=== PATIENT | female | born 1960 | race Caucasian/White ===

== ENCOUNTER 2017-08-23 04:05 | Inpatient (IN) | payer MEDICARE, MEDICAID ==
[~2017-08-23] VITALS: Ht 157.5 cm; Wt 69.4 kg
--- NOTE | 2017-08-23 09:00 | NUR ---
GPS/RN-NOTES ADMITTED 57 YEARS OLD FEMALE PATIENT. PATIENT ON 5150 HOLD FOR GRAVELY DISABLE ADULT. PER HOLD PATIENT HAS BEEN INCREASINGLY CONFUSED AND NOT SLEEPING FOR 5DAYS. UPON FACE TO FACE ASSESSMENT PATIENT IS ALERT ORIENTED X3, AMBULATORY,PASSIVE WITH EASILY ANGRY BEHAVIOR. PATIENT'S RIGHT WAS DISCUSSED WITH THE PATIENT AND PATIENT'S RIGHT BOOKLET WAS GIVEN TO THE PATIENT. PATIENT DID NOT VERBALIZE SI/HI,DENIES VISUAL/AUDITORY HALLUCINATIONS AT THIS TIME.DR. SUAREZ MADE AWARE OF PATIENT ADMISSION WITH ORDERS.PATIENT'S AWNING HANGER HELPER CYNTHIA LOMBARDO ([phone] ) ALSO MADE AWARE OF PATIENT ADMISSION IN THE UNIT. PATIENT WAS ORIENTED IN THE UNIT AND UNIT POLICIES.
[2017-08-23] MEDS ORDERED: ARIP30TA3 PO (10:24)
[2017-08-23] MEDS ORDERED: MIRT15TA PO (10:24)
[2017-08-23] MEDS ORDERED: TRIH2TAB4 PO (10:24)
[2017-08-23] MEDS ORDERED: AMLO10TA4 PO (10:24)
[2017-08-23] MEDS ORDERED: FLUP5TAB PO (10:24)
[2017-08-23] MEDS ORDERED: LISI-603 PO (10:24)
[2017-08-23] MEDS ORDERED: DIPH50CA37 PO (10:24)
[2017-08-23] MEDS ORDERED: LAMO25TA5 PO (10:24)
[2017-08-23] MEDS ORDERED: LORA-259 PO (10:24)
[2017-08-23] MEDS ORDERED: OMEG1CAP55 PO (10:24)
[2017-08-23] MEDS ORDERED: ATOR10TA PO (10:24)
[2017-08-23] MEDS ORDERED: BENZ1TAB7 PO (10:24)
[2017-08-23] MEDS ORDERED: ACETAMINOPHEN 325 MG TABLET PO PRN (11:00)
[2017-08-23] MEDS ORDERED: MAG HYDROX/AL HYDROX/SIMETH 30 ML UDC PO PRN (11:00)
[2017-08-23] MEDS ORDERED: clonazePAM 0.5 MG TABLET PO PRN (11:00)
[2017-08-23] MEDS ORDERED: MAGNESIUM HYDROXIDE 30 ML UDC PO PRN (11:00)
--- NOTE | 2017-08-23 11:10 | NUR ---
GPS/RN-NOTES NOTED PATIENT PACING IN THE HALLWAY AND STATED SHE WANTS TO GO HOME. REDIRECTED AND REASSURED PATIENT. OFFERED KLONOPIN AND AGREES. KLONOPIN 0.5MG P.O GIVEN PRN ORDER. WILL CONT. MONITORING FOR SAFETY AND BEHAVIOR.
--- NOTE | 2017-08-23 12:00 | NUR ---
GPS/RN-NOTES DR. PALACIOS ( MARKETING PRODUCER) MADE AWARE OF PATIENT ADMISSION IN THE UNIT AND WILL RECONCILE PATIENT MEDICATIONS.
[2017-08-23] MEDS ORDERED: diphenhydrAMINE HCL 50 MG CAPSULE PO PRN (15:00)
[2017-08-23 16:00] VITALS: BP 148/88
[2017-08-23 20:00] VITALS: BP 124/74
[2017-08-23 20:12] VITALS: BP 124/74
[2017-08-23] MEDS: ARIPIPRAZOLE 5 MG TABLET PO SCH (21:13)
[2017-08-23] MEDS: BENZTROPINE MESYLATE (1 MG) 1 MG TABLET PO SCH (21:14)
[2017-08-23] MEDS: LamoTRIgine 25 MG TABLET PO SCH (21:14)
[2017-08-23] MEDS: TEMAZEPAM 7.5 MG CAPSULE PO PRN (21:15)
[2017-08-24 07:41] LABS: CHOLESTEROL 178 mg/dL (<200); HDL CHOLESTEROL 66 mg/dL (40-60); LDL 92 mg/dL (0-99); TRIGLYCERIDES 130 mg/dL (30-150)
[2017-08-24 07:45] LABS: ALBUMIN 3.8 g/dL (3.4-5.0); BILIRUBIN,TOTAL 0.4 mg/dL (0.2-1.0); CALCIUM, SERUM 8.6 mg/dL (8.5-10.1); CREATININE 1.3 mg/dL (0.6-1.3); POTASSIUM 4.1 mmol/L (3.5-5.1); TOTAL PROTEIN, SERUM 7.5 g/dL (6.4-8.2)
[2017-08-24 08:00] VITALS: BP 153/78
--- NOTE | 2017-08-24 08:49 | NUR ---
Initial Discharge Note: Patient states that the address, which is listed on on the facesheet is inaccurate. The address on file is: [address] [place] [address]. Patient states that she recently moved to the [facility], but is unable to provide exact address. SW to contact patient's caregiver, Riya Tan [phone] to discuss discharge plan. SW to follow up with MD and facilitate safe and proper discharge.
[2017-08-24] MEDS: LamoTRIgine 25 MG TABLET PO SCH ×2 (09:12→21:39)
[2017-08-24] MEDS: TRIHEXYPHENIDYL HCL 2 MG TABLET PO SCH (09:12)
[2017-08-24] MEDS: LISINOPRIL (20MG) 20 MG TABLET PO SCH (09:13)
[2017-08-24] MEDS: ATORVASTATIN 10 MG TABLET PO SCH (09:13)
[2017-08-24] MEDS: AMLODIPINE BESYLATE 10 MG TABLET PO SCH (09:13)
[2017-08-24] MEDS: NICOTINE PATCH (14MG) 14 MG PATCH.TD24 TD SCH (09:15)
[2017-08-24] MEDS: LORAZEPAM 1 MG TABLET PO PRN (14:31)
--- NOTE | 2017-08-24 14:33 | NUR ---
GPS/RN-NOTES NOTED PATIENT PACING IN THE HALLWAY HYPERVERBAL REQUESTING FOR ATIVAN.REDIRECTED AND REASSURED PATIENT. ATIVAN 1MG P.O GIVEN PRN ORDER. WILL CONT. MONITORING FOR SAFETY AND BEHAVIOR.
--- NOTE | 2017-08-24 15:30 | NUR ---
GPS/RN-NOTES PATIENT LAYING IN HER BED CALM AND COOPERATIVE ,NO ACUTE DISTRESS NOTED.
[2017-08-24 15:44] VITALS: BP 138/72
[2017-08-24 20:00] VITALS: BP 137/92
[2017-08-24] MEDS ORDERED: ARIPIPRAZOLE 5 MG TABLET ONE (21:30)
--- NOTE | 2017-08-24 21:30 | NUR ---
GPS RN NOTES: NOTIFIED NURSING SENIOR TALENT ACQUISITION SPECIALIST CODIE TO OVERRIDE ABILIFY 30MG HE SAID, NOT AVAILABLE IN THE NIGHT LOCKER AND THAT HE INSTRUCTED TO GO TO THE NEAREST UNIT. CHARGE NURSE FROM [facility] PULLED OUT FROM OMNICELL ABILIFY 30MG PO ORDERED. AUDIO VISUAL SECRETARY AND CN MADE AWARE.
[2017-08-24] MEDS: ARIPIPRAZOLE 5 MG TABLET PO SCH (21:38)
[2017-08-24] MEDS: BENZTROPINE MESYLATE (1 MG) 1 MG TABLET PO SCH (21:39)
[2017-08-25] MEDS ORDERED: CALCIUM CARBONATE 500 MG TAB.CHEW ONE (00:48)
[2017-08-25] MEDS: CALCIUM CARBONATE 500 MG TAB.CHEW PO PRN (00:56)
--- NOTE | 2017-08-25 00:56 | NUR ---
GPS RN NOTES: PATIENT C/O OF THREW UP WITH FOOD CONTENT SMALL TO MODERATE AMOUNT, HOB ELEVATED FOR ASPIRATION PRECAUTION, ENCOURAGED FLUIDS TOLERATED, CRACKERS OFFERED, TOLERATED WELL. PATIENT SAID, SHE WAS TAKING TUMS AND NEXIUM. NOTIFIED DR. LEVINE. ORDERED TUMS 500 MG TID PRN NOTED AND CARRIED OUT. NEXIUM 20MG PO AC MEALS BID IS NON-FORMULARY MEDICATION, WILL ENDORSE TO FOLLOW UP, NOTIFY PHARMACIST ABOUT SUBSTITUTION.
[2017-08-25] MEDS: TEMAZEPAM 7.5 MG CAPSULE PO PRN (01:00)
[2017-08-25] MEDS: LORAZEPAM 1 MG TABLET PO PRN (01:30)
--- NOTE | 2017-08-25 06:34 | NUR ---
GPS RN NOTES: FOLLOWED UP CALL MADE TO DR. LEVINE. AWAITING CALL BACK.
[2017-08-25 08:00] VITALS: BP 134/70
[2017-08-25] MEDS: ATORVASTATIN 10 MG TABLET PO SCH (08:08)
[2017-08-25] MEDS: AMLODIPINE BESYLATE 10 MG TABLET PO SCH (08:09)
[2017-08-25] MEDS: LamoTRIgine 25 MG TABLET PO SCH ×2 (08:09→21:37)
[2017-08-25] MEDS: LISINOPRIL (20MG) 20 MG TABLET PO SCH (08:09)
[2017-08-25] MEDS: TRIHEXYPHENIDYL HCL 2 MG TABLET PO SCH (08:09)
--- NOTE | 2017-08-25 09:54 | NUR ---
DR. PALACIOS IN THE UNIT AND EXAMINED THE PT. ADVANCE DIRECTIVES SHOWED TO MD AND SAID HE WILL PUT THE ORDER. MD. ORDER ORDERED PROTONIX 40 MG PO ACB.
[2017-08-25] MEDS: NICOTINE PATCH (14MG) 14 MG PATCH.TD24 TD SCH (10:33)
[2017-08-25] MEDS: PANTOPRAZOLE 40 MG TABLET.DR PO SCH (10:52)
--- NOTE | 2017-08-25 13:15 | NUR ---
Discharge Planning: SW called and left a voicemail for patient's caregiver Riya Tan [phone]. SW provided her direct contact information in the voicemail.
--- NOTE | 2017-08-25 13:27 | NUR ---
Discharge Planning: SW spoke with Xenia Mensah, . Xenia is patient's trustee and manages a special needs trust. Xenia stated that patient's caregivers and her have been attempting to convince patient to go to a SNF after the hospital before returning back home. In previous conversations with SW, patient had been refusing any placement. SW to speak with patient and continue conversations with caregivers/trustee.
[2017-08-25 16:00] VITALS: BP 130/80
[2017-08-25 20:00] VITALS: BP 130/78
[2017-08-25] MEDS: BENZTROPINE MESYLATE (1 MG) 1 MG TABLET PO SCH (21:37)
[2017-08-25] MEDS: ARIPIPRAZOLE 5 MG TABLET PO SCH (21:37)
[2017-08-26] MEDS: PANTOPRAZOLE 40 MG TABLET.DR PO SCH ×2 (07:30→07:33)
[2017-08-26 08:00] VITALS: BP 136/47
[2017-08-26] MEDS: LISINOPRIL (20MG) 20 MG TABLET PO SCH ×2 (09:00→09:04)
[2017-08-26] MEDS: NICOTINE PATCH (14MG) 14 MG PATCH.TD24 TD SCH ×2 (09:00→09:04)
[2017-08-26] MEDS: TRIHEXYPHENIDYL HCL 2 MG TABLET PO SCH (09:04)
[2017-08-26] MEDS: ATORVASTATIN 10 MG TABLET PO SCH (09:04)
[2017-08-26] MEDS: AMLODIPINE BESYLATE 10 MG TABLET PO SCH (09:04)
[2017-08-26] MEDS: LamoTRIgine 25 MG TABLET PO SCH ×2 (09:04→21:02)
[2017-08-26 16:00] VITALS: BP 139/84
[2017-08-26 20:00] VITALS: BP 148/88
[2017-08-26] MEDS: ARIPIPRAZOLE 5 MG TABLET PO SCH (21:01)
[2017-08-26] MEDS: BENZTROPINE MESYLATE (1 MG) 1 MG TABLET PO SCH (21:01)
[2017-08-27] MEDS: CALCIUM CARBONATE 500 MG TAB.CHEW PO PRN ×2 (01:08→09:44)
[2017-08-27] MEDS: LORAZEPAM 1 MG TABLET PO PRN (02:20)
[2017-08-27] MEDS: PANTOPRAZOLE 40 MG TABLET.DR PO SCH (07:30)
[2017-08-27 08:00] VITALS: BP 130/72
[2017-08-27] MEDS: NICOTINE PATCH (14MG) 14 MG PATCH.TD24 TD SCH (09:00)
[2017-08-27] MEDS: LISINOPRIL (20MG) 20 MG TABLET PO SCH (09:00)
[2017-08-27] MEDS: TRIHEXYPHENIDYL HCL 2 MG TABLET PO SCH (09:00)
[2017-08-27] MEDS: LamoTRIgine 25 MG TABLET PO SCH ×2 (09:05→20:57)
[2017-08-27] MEDS: ATORVASTATIN 10 MG TABLET PO SCH (09:06)
[2017-08-27] MEDS: AMLODIPINE BESYLATE 10 MG TABLET PO SCH (09:06)
--- NOTE | 2017-08-27 09:44 | NUR ---
rn notes administered Benadryl for itching, and Tums for stomachache, per patient request, patient selective with scheduled medication., continued monitoring.
[2017-08-27 16:05] VITALS: BP 127/89
[2017-08-27 19:51] VITALS: BP 143/77
[2017-08-27] MEDS: BENZTROPINE MESYLATE (1 MG) 1 MG TABLET PO SCH (20:56)
[2017-08-27] MEDS: ARIPIPRAZOLE 5 MG TABLET PO SCH (22:00)
--- NOTE | 2017-08-27 22:00 | NUR ---
GPS RN NOTES: PATIENT REQUESTED THE COURT ATTENDANT FOR THE FOLLOWING TO BE TAKEN CARED OF: - PASTEURIZING SUPERVISOR CONSULT- UNABLE TO STATE THE REASON WHY SHE NEEDS ONE - FOR HER TO BE DISCHARGED TODAY BECAUSE HER SERVICE DOG IS ALONE AT HOME. - LIPITOR MEDICATION TO BE GIVEN AT NIGHT TIME ONLY - COLACE MEDICATION AT NIGHT - REMERON 7.5 MG FOR SLEEP - XANAX MEDICATION INSTEAD OF ATIVAN. DISCUSSED EVERYTHING WITH THE DAY SHIFT NURSE. ATTENDED TO THE PATIENT'S NEEDS NEEDED.
[2017-08-28] MEDS: IBUPROFEN 400 MG TABLET PO PRN ×2 (06:20→21:36)
[2017-08-28] MEDS: PANTOPRAZOLE 40 MG TABLET.DR PO SCH (07:30)
[2017-08-28] MEDS: CALCIUM CARBONATE 500 MG TAB.CHEW PO PRN (07:35)
[2017-08-28 08:00] VITALS: BP 144/85
[2017-08-28] MEDS: NICOTINE PATCH (14MG) 14 MG PATCH.TD24 TD SCH (08:29)
[2017-08-28] MEDS: LamoTRIgine 25 MG TABLET PO SCH ×2 (08:30→21:40)
[2017-08-28] MEDS: AMLODIPINE BESYLATE 10 MG TABLET PO SCH (08:31)
[2017-08-28] MEDS: TRIHEXYPHENIDYL HCL 2 MG TABLET PO SCH (08:33)
[2017-08-28] MEDS: LISINOPRIL (20MG) 20 MG TABLET PO SCH (08:33)
[2017-08-28] MEDS: ATORVASTATIN 10 MG TABLET PO SCH (09:26)
--- NOTE | 2017-08-28 14:35 | NUR ---
Discharge Planning: NEETU spoke to patient's trustee, Xneia Mensah, . Xenia requested to meet tomorrow afternoon. NEETU stated that 11am is a good time. NEETU and Xenia will discuss patient's discharge plans.
--- NOTE | 2017-08-28 14:35 | NUR ---
Discharge Planning: NEETU faxed inquiry to [facility], [address] [address]; / fax# . SW to follow up on status.
[2017-08-28 16:00] VITALS: BP 140/86
[2017-08-28 20:11] VITALS: BP 119/77
[2017-08-28] MEDS: BENZTROPINE MESYLATE (1 MG) 1 MG TABLET PO SCH (21:37)
[2017-08-28] MEDS: ARIPIPRAZOLE 5 MG TABLET PO SCH (21:39)
--- NOTE | 2017-08-29 05:39 | NUR ---
GPS RN NOTES: PATIENT CAME TO THE STATION AND ASKED FOR IBUPROFEN SHE IS HAVING SOME PAIN ON HER RIGHT LEG. NURSE WENT TO THE MED ROOM TO PULL OUT MEDICATION, PATIENT THEN SAID SHE WILL BE BACK. WHEN SHE CAME BACK TO THE STATION, SHE TOLD THE NURSE SHE WANTED HER BENADRYL BECAUSE SHE IS ITCHING. SO THE NURSE TOLD HER TO WAIT IN THE STATION SHE WILL PULL OUT HER MEDICATION. WHEN THE NURSE CAME BACK, THE PATIENT LEFT THE STATION. SO THE NURSE FOLLOWED HER IN THE HALLWAY, WHEN THE NURSE APPROACHED,SHE SAID, "I ACTUALLY HAVE INFECTION, THIS LONG". SHE WAS TRYING TO ILLUSTRATE THE LENGTH TO THE NURSE. WHEN ASKED IF SHE WANTS HER MEDICATION THAT SHE ASKED EARLIER, SHE THEN ANSWERED, "I NEED MY BLOOD PRESSURE MEDICATION NOW" THE NURSE THEN TOLD HER, THE MEDICATIONS FOR BLOOD PRESSURE WILL BE CHECKED AND SHE WILL GET HER MEDS AT 0900. WILL ENDORSE PATIENT TO THE DAY SHIFT NURSE.
[2017-08-29 08:00] VITALS: BP 111/58
[2017-08-29] MEDS: NICOTINE PATCH (14MG) 14 MG PATCH.TD24 TD SCH (08:14)
[2017-08-29] MEDS: ATORVASTATIN 10 MG TABLET PO SCH (08:14)
[2017-08-29] MEDS: PANTOPRAZOLE 40 MG TABLET.DR PO SCH (08:14)
[2017-08-29] MEDS: TRIHEXYPHENIDYL HCL 2 MG TABLET PO SCH (08:14)
[2017-08-29] MEDS: LamoTRIgine 25 MG TABLET PO SCH ×2 (08:14→20:56)
[2017-08-29] MEDS: AMLODIPINE BESYLATE 10 MG TABLET PO SCH (08:15)
[2017-08-29] MEDS: LISINOPRIL (20MG) 20 MG TABLET PO SCH (08:15)
--- NOTE | 2017-08-29 11:14 | NUR ---
Discharge Planning: NEETU faxed an inquiry to [facility], [address] [place] [address] / fax number [phone]
--- NOTE | 2017-08-29 11:15 | NUR ---
NEETU received a voicemail from patient's trustee, Xenia Mensah, that she was unable to meet with SW today at 11am.
--- NOTE | 2017-08-29 11:15 | NUR ---
Discharge Planning: SW was informed by Rupert from [facility], [address] [address] [facility] [place] [address]; / fax# that patient was too young for their facility.
[2017-08-29 16:00] VITALS: BP 110/59
[2017-08-29] MEDS: IBUPROFEN 400 MG TABLET PO PRN (18:01)
--- NOTE | 2017-08-29 18:04 | NUR ---
GPS/RN-NOTES PATIENT C/O 3/10 LOWER BACK PAIN AND REQUESTING MOTRIN. MOTRIN 400MG P.O GIVEN PRN ORDER. WILL CONT. MONITORING FOR SAFETY AND BEHAVIOR.
[2017-08-29 20:04] VITALS: BP 144/87
[2017-08-29] MEDS: BENZTROPINE MESYLATE (1 MG) 1 MG TABLET PO SCH (21:17)
[2017-08-29] MEDS: ARIPIPRAZOLE 5 MG TABLET PO SCH (21:17)
[2017-08-29] MEDS: TEMAZEPAM 7.5 MG CAPSULE PO PRN (23:16)
[2017-08-30] MEDS: PANTOPRAZOLE 40 MG TABLET.DR PO SCH (07:30)
[2017-08-30] MEDS: LISINOPRIL (20MG) 20 MG TABLET PO SCH (09:09)
[2017-08-30] MEDS: AMLODIPINE BESYLATE 10 MG TABLET PO SCH (09:09)
[2017-08-30] MEDS: TRIHEXYPHENIDYL HCL 2 MG TABLET PO SCH (09:09)
[2017-08-30] MEDS: LamoTRIgine 25 MG TABLET PO SCH ×2 (09:10→21:20)
[2017-08-30] MEDS: ATORVASTATIN 10 MG TABLET PO SCH (09:10)
[2017-08-30] MEDS: NICOTINE PATCH (14MG) 14 MG PATCH.TD24 TD SCH (09:10)
--- NOTE | 2017-08-30 10:37 | NUR ---
Discharge Planning: SW was informed by CJ from [facility], [address] [place] [address] / fax number [phone] that patient was accepted into their facility. SW spoke with patient regarding the SNF and patient agreed to go, stating that it is a part of her three-part plan: first part is the hospital, second part is the SNF and the third part is to get well enough to return home with caregiver.
--- NOTE | 2017-08-30 10:40 | NUR ---
Discharge Planning: SW spoke with patient's trustee, Xenia Mensah, and informed her that patient was accepted into [facility] and that patient is agreeing to go. Xenia stated that she was pleased with the news and asked SW to update her on a discharge date. SW stated that she will do so.
[2017-08-30 11:30] VITALS: BP 127/66
[2017-08-30 16:00] VITALS: BP 105/65
[2017-08-30] MEDS: IBUPROFEN 400 MG TABLET PO PRN (20:31)
[2017-08-30 20:59] VITALS: BP 134/98
[2017-08-30] MEDS: ARIPIPRAZOLE 5 MG TABLET PO SCH (21:21)
[2017-08-30] MEDS: BENZTROPINE MESYLATE (1 MG) 1 MG TABLET PO SCH (21:21)
[2017-08-30] MEDS: TEMAZEPAM 7.5 MG CAPSULE PO PRN (21:22)
[2017-08-31] MEDS: IBUPROFEN 400 MG TABLET PO PRN ×2 (07:01→18:20)
[2017-08-31] MEDS: LamoTRIgine 25 MG TABLET PO SCH ×2 (08:17→21:28)
[2017-08-31] MEDS: PANTOPRAZOLE 40 MG TABLET.DR PO SCH (08:17)
[2017-08-31] MEDS: ATORVASTATIN 10 MG TABLET PO SCH (08:17)
[2017-08-31] MEDS: AMLODIPINE BESYLATE 10 MG TABLET PO SCH (08:17)
[2017-08-31] MEDS: TRIHEXYPHENIDYL HCL 2 MG TABLET PO SCH (08:17)
[2017-08-31] MEDS: NICOTINE PATCH (14MG) 14 MG PATCH.TD24 TD SCH (08:18)
[2017-08-31] MEDS: LISINOPRIL (20MG) 20 MG TABLET PO SCH (08:18)
[2017-08-31 08:27] VITALS: BP 118/78
--- NOTE | 2017-08-31 12:30 | NUR ---
Discharge Planning: NEETU faxed progress notes to [facility], [address] [place] [address] / fax number [phone]
[2017-08-31 16:46] VITALS: BP 138/77
[2017-08-31 20:00] VITALS: BP 146/76
[2017-08-31] MEDS: BENZTROPINE MESYLATE (1 MG) 1 MG TABLET PO SCH (21:28)
[2017-08-31] MEDS: ARIPIPRAZOLE 5 MG TABLET PO SCH (21:28)
[2017-08-31] MEDS: TEMAZEPAM 7.5 MG CAPSULE PO PRN (21:29)
[2017-09-01] MEDS: IBUPROFEN 400 MG TABLET PO PRN (02:31)
[2017-09-01 08:00] VITALS: BP 133/73
[2017-09-01] MEDS: TRIHEXYPHENIDYL HCL 2 MG TABLET PO SCH (08:29)
[2017-09-01] MEDS: LamoTRIgine 25 MG TABLET PO SCH (08:29)
[2017-09-01] MEDS: NICOTINE PATCH (14MG) 14 MG PATCH.TD24 TD SCH (08:29)
[2017-09-01] MEDS: PANTOPRAZOLE 40 MG TABLET.DR PO SCH (08:29)
[2017-09-01 08:30] VITALS: BP 133/73
[2017-09-01] MEDS: AMLODIPINE BESYLATE 10 MG TABLET PO SCH (08:30)
[2017-09-01] MEDS: ATORVASTATIN 10 MG TABLET PO SCH (08:30)
[2017-09-01] MEDS: LISINOPRIL (20MG) 20 MG TABLET PO SCH (08:30)
--- NOTE | 2017-09-01 09:31 | NUR ---
Discharge Note: Patient will be discharged to [facility], [address] [facility] [place] [address] / fax number [phone] via ambulance transportation set up by social media intern via [employer] [phone], trip #[id number]. Patients trustee, Xenia Mensah [phone], is aware and in agreement with discharge plan. Upon discharge, patient denies suicidal and homicidal ideation. Patient denies visual and auditory hallucinations. At the facility, patient will be seen by psychiatrist Dr. Sadler [address], [place] [address] [phone]. Patients occupational therapy technician will be Dr. White [address] [address] [phone].
--- NOTE | 2017-09-01 14:36 | NUR ---
GPS/RN-NOTES PATIENT DISCHARGE TO [facility] TODAY . DR. SUAREZ AND SKINNY DAVIDSON AWARE AND AGREES OF PATIENT DISCHARGE WITH ORDERS. REPORT WAS GIVEN TO NIRANJAN ( FACILITY STAFF/DEVELOPMENT EXPERT ). PATIENT DID NOT VERBALIZE SI/HI,DENIES VISUAL AUDITORY HALLUCINATIONS AT THE TIME OF DISCHARGE. PATIENT LEFT THE UNIT AMBULATORY, IN STABLE CONDITION WITH ALL HER BELONGINGS. PER SW WORKER NOTES PATIENT TRUSTEE ( Xenia Rodrick [phone]) AWARE OF PATIENT DISCHARGE. PICK BY AMBULANCE VIA [facility] WITH TWO STAFF ASSIST. PATIENT REFUSED FULL BODY ASSESSMENT PRIOR TO DISCHARGE. STATED" MY SKIN ARE FINE". EXPLAINED UNIT POLICIES BUT STILL REFUSED.
== END 2017-09-01 14:30 | DRG 885 ==
LOC: TRANSITION 08:19 → GPS 08:32
PROVIDERS: ADMIT Psychiatry & Neurology Psychiatry; ATTEND Internal Medicine
DX: F31.2 Bipolar disorder, current episode manic severe with psychotic features (principal); G20 Parkinson's disease; F03.90 Unspecified dementia, unspecified severity, without behavioral disturbance, psychotic disturbance, mood disturbance, and anxiety; E78.5 Hyperlipidemia, unspecified; F29 Unspecified psychosis not due to a substance or known physiological condition; I10 Essential (primary) hypertension; F41.9 Anxiety disorder, unspecified; Z73.6 Limitation of activities due to disability
CPT/HCPCS: 36415; 80053-TC; 80061-TC; 87081-TC; Q0163

== ENCOUNTER 2017-11-06 11:28 | Inpatient (IN) | payer MEDICARE, MEDICAID ==
[~2017-11-06] VITALS: Ht 157.5 cm; Wt 68.9 kg
[~2017-11-06 11:28] MED LIST: AMLO10TA4 PO; ATOR10TA PO; DIPH50CA37 PO; LISI-603 PO; OMEG1CAP55 PO; TRIH2TAB4 PO
--- NOTE | 2017-11-06 11:45 | NUR ---
Recieved patient at this time. Pt was private ems from SNF for more altered than usual x 1 day. Pt appars confused. A/ox1. NAD, vss rr even and unlabored. skin is warm and non diaphoretic. All needs are attended, will cont to monitor.
--- NOTE | 2017-11-06 11:54 | NUR ---
Pt to CT scan.
[2017-11-06] MEDS ORDERED: OLANZAPINE 10 MG VIAL IM ONE ×2 (12:00→12:47)
--- NOTE | 2017-11-06 12:04 | NUR ---
Pt back from CT scan.
[2017-11-06 12:18] LABS: BASOPHILS # (AUTO) 0.1 /CMM (0.0-0.2); BASOPHILS % (AUTO) 1.1 % (0.0-2.0); EOSINOPHILS % (AUTO) 0.2 % (0.0-6.0); HEMATOCRIT 39 % (33-45); HEMOGLOBIN 13.6 g/dL (11.5-14.8); LYMPHOCYTES # (AUTO) 1.6 /CMM (0.8-4.8); LYMPHOCYTES % (AUTO) 17.9 % (20.0-44.0); MEAN CORPUSCULAR HGB CONC 35 g/dl (31.0-36.0); MEAN CORPUSCULAR VOLUME 86 fL (82-100); MONOCYTES # (AUTO) 0.6 /CMM (0.1-1.30); MONOCYTES % (AUTO) 6.2 % (2.0-12.0); NEUTROPHILS # (AUTO) 6.8 /CMM (1.8-8.9); NEUTROPHILS % (AUTO) 74.6 % (43.0-81.0); PLATELET COUNT (AUTO) 156 /CMM (150-450); RDW COEFFICIENT OF VARIATION 13.4 (11.5-15.0); RED BLOOD CELL COUNT(AUTO) 4.55 MIL/uL (4.0-5.2); WHITE BLOOD COUNT (AUTO) 9.1 K/uL (4.3-11.0)
[2017-11-06 12:21] LABS: CALCIUM, SERUM 9.5 mg/dL (8.5-10.1); CARBON DIOXIDE 23 mmol/L (21-32); CHLORIDE 105 mmol/L (98-107); CREATININE 1.3 mg/dL (0.6-1.3); GLUCOSE 104 mg/dL (74-106); POTASSIUM 3.9 mmol/L (3.5-5.1); SODIUM SERUM 140 mmol/L (136-145); UREA NITROGEN, BLOOD 25 mg/dL (7-18)
[2017-11-06 12:23] LABS: INR 0.99 (0.85-1.15)
[2017-11-06 12:27] LABS: ALANINE AMINOTRANSFERASE 38 U/L (12-78); ALCOHOL, BLOOD < 3 mg/dL (0-0); ALKALINE PHOSPHATASE 109 U/L (46-116); ASPARTATE AMINOTRANSFERASE 21 U/L (15-37); BILIRUBIN,DIRECT 0.3 mg/dL (0.0-0.2); BILIRUBIN,TOTAL 1.3 mg/dL (0.2-1.0); TOTAL PROTEIN, SERUM 7.7 g/dL (6.4-8.2)
--- NOTE | 2017-11-06 13:20 | NUR ---
CALLED ART FOR EVAL
[2017-11-06 13:43] LABS: APPEARANCE,URINE Clear (CLEAR); BILIRUBIN,URINE Negative (NEGATIVE); BLOOD, URINE Negative Ery/uL (NEGATIVE); COLOR,URINE Yellow (YELLOW); KETONES,URINE Negative (NEGATIVE); LEUKOCYTE ESTERASE ,URINE Negative (NEGATIVE); NITRITE, URINE Negative (NEGATIVE); PROTEIN,URINE Negative (NEGATIVE); UGLUCOSE Negative (NEGATIVE); UROBILINOGEN,URINE 0.2 EU/dL (0.2)
--- NOTE | 2017-11-06 15:30 | NUR ---
Lamberto martin in [facility] - 11/06/17 at 1531 by SIRISHA Simeon RUSSELL
[2017-11-06] MEDS ORDERED: DOCU100C36 PO (15:37)
[2017-11-06] MEDS ORDERED: ACET-2605 PO (15:37)
[2017-11-06] MEDS ORDERED: LURA40TA PO (15:37)
[2017-11-06] MEDS ORDERED: OMEP40CA37 PO (15:37)
[2017-11-06] MEDS ORDERED: MELA3TAB PO (15:37)
[2017-11-06] MEDS ORDERED: SENN-167 PO (15:37)
[2017-11-06] MEDS ORDERED: ACET-868 PO (15:37)
[2017-11-06] MEDS ORDERED: LAMO100T2 PO (15:37)
[2017-11-06 16:00] VITALS: BP 124/74
--- NOTE | 2017-11-06 16:07 | NUR ---
REPORT GIVEN TO FRANKY WELD ENGINEER FOR CONTINUITY OF CARE IN [facility]
--- NOTE | 2017-11-06 16:15 | NUR ---
GPS/RN RECEIVED PATIENT FROM ER, PATIENT ON A 5150 HOLD FOR GD, UNDER THE CARE OF DR SANTIAGO AND WIRING TECHNICIAN RINA. BOTH DR'S NOTIFIED OF NEW ADMISSION. MEDICATIONS IN SYSTEM, AWAITING FOR RECONCILIATION. PER HOLD PATIENT WAS DISORGANIZED, CONFUSED AND UNABLE TO CARE FOR SELF AT FACILITY. UPON FACE TO FACE ASSESSMENT, PATIENT IS ALERT X 2-3, STABLE CONDITION, ANXIOUS, BLUNTED AFFECT, UNKEMPT AND DISORGANIZED. PATIENT REFUSED TO SIGN ADMISSION PAPERWORK, COSIGNED BY 2 RN, BELONGINGS PUT IN LOCKER AND VALUABLES TAKEN TO SAFE. SKIN PHOTOS TAKEN, PATIENT DENIES ANY SI/HI AT THIS TIME. AT THIS TIME PATIENT IS IN DINING ROOM, WITH NO DISTRESS NOTED. WILL CONTINUE Q 15 MIN CHECKS FOR SAFETY AND BEHAVIOR.
--- NOTE | 2017-11-06 16:16 | NUR ---
Pt transferred to GPS in stable condition.
[2017-11-06] MEDS ORDERED: LORAZEPAM 0.5 MG TABLET PO PRN (17:00)
[2017-11-06] MEDS ORDERED: MAGNESIUM HYDROXIDE 30 ML UDC PO PRN (17:00)
[2017-11-06] MEDS ORDERED: ACETAMINOPHEN 325 MG TABLET PO PRN ×2 (17:00→19:00)
[2017-11-06] MEDS ORDERED: MAG HYDROX/AL HYDROX/SIMETH 30 ML UDC PO PRN (17:00)
[2017-11-06 19:59] VITALS: BP 112/64
[2017-11-06] MEDS: SENNOSIDES 8.6 MG TABLET PO SCH (21:13)
[2017-11-06] MEDS ORDERED: LamoTRIgine 100 MG TABLET PO SCH (22:00)
[2017-11-06] MEDS: TEMAZEPAM 7.5 MG CAPSULE PO PRN (22:10)
[2017-11-07] MEDS: PANTOPRAZOLE 40 MG TABLET.DR PO SCH (07:30)
[2017-11-07 07:32] LABS: ALBUMIN 3.7 g/dL (3.4-5.0); BILIRUBIN,TOTAL 0.9 mg/dL (0.2-1.0); CALCIUM, SERUM 9.2 mg/dL (8.5-10.1); CHOLESTEROL 165 mg/dL (<200); CREATININE 1.5 mg/dL (0.6-1.3); HDL CHOLESTEROL 58 mg/dL (40-60); LDL 95 mg/dL (0-99); POTASSIUM 4.2 mmol/L (3.5-5.1); TOTAL PROTEIN, SERUM 7.1 g/dL (6.4-8.2); TRIGLYCERIDES 116 mg/dL (30-150)
[2017-11-07 08:00] VITALS: BP 114/59
[2017-11-07] MEDS: AMLODIPINE BESYLATE 10 MG TABLET PO SCH (09:00)
--- NOTE | 2017-11-07 09:17 | NUR ---
WOUND CARE CONSULT: PT PRESENTS WITH LEFT ABDOMINAL SKIN FOLD REDNESS, PRESENT ON ADMISSION. RECOMMENDATIONS MADE FOR SKIN CARE AND PROTECTION. DISCUSSED WITH NURSING STAFF. WILL SEE PRN. PT IS AMBULATORY AND CONTINENT WITH CURRENT ASHUTOSH SCORE OF 22. Addendum: 11/07/17 at 0918 by LINDSEY MCCORMICK WNDNU Amended: Links added.
[2017-11-07] MEDS: ATORVASTATIN 10 MG TABLET PO SCH (09:43)
[2017-11-07] MEDS: DOCUSATE SODIUM 100 MG CAPSULE PO SCH ×2 (09:44→17:00)
[2017-11-07] MEDS: TRIHEXYPHENIDYL HCL 2 MG TABLET PO SCH (09:45)
[2017-11-07] MEDS: Z GUARD REMEDY 2 OZ OINT TP SCH (09:45)
[2017-11-07] MEDS ORDERED: risperiDONE 1 MG TABLET PO SCH (11:00)
[2017-11-07] MEDS: risperiDONE 1 MG TABLET PO SCH ×2 (11:46→17:00)
[2017-11-07] MEDS: BENZTROPINE MESYLATE (1 MG) 1 MG TABLET PO SCH ×2 (11:46→17:00)
[2017-11-07 16:00] VITALS: BP 109/89
[2017-11-07 20:22] VITALS: BP 114/59
[2017-11-07] MEDS: LamoTRIgine 100 MG TABLET PO SCH (21:40)
[2017-11-07] MEDS: SENNOSIDES 8.6 MG TABLET PO SCH (21:40)
[2017-11-07] MEDS: TEMAZEPAM 7.5 MG CAPSULE PO PRN (22:05)
[2017-11-08] MEDS: PANTOPRAZOLE 40 MG TABLET.DR PO SCH (07:30)
[2017-11-08 08:00] VITALS: BP 115/76
[2017-11-08] MEDS: BENZTROPINE MESYLATE (1 MG) 1 MG TABLET PO SCH ×3 (09:13→18:42)
[2017-11-08] MEDS: ATORVASTATIN 10 MG TABLET PO SCH (09:13)
[2017-11-08] MEDS: AMLODIPINE BESYLATE 10 MG TABLET PO SCH (09:14)
[2017-11-08] MEDS: TRIHEXYPHENIDYL HCL 2 MG TABLET PO SCH (09:15)
[2017-11-08] MEDS: DOCUSATE SODIUM 100 MG CAPSULE PO SCH ×2 (09:16→17:00)
[2017-11-08] MEDS: Z GUARD REMEDY 2 OZ OINT TP SCH (09:16)
[2017-11-08] MEDS: risperiDONE 1 MG TABLET PO SCH ×3 (09:16→18:43)
[2017-11-08] MEDS: clonazePAM 0.5 MG TABLET PO SCH ×2 (14:30→17:00)
[2017-11-08 14:56] LABS: BASOPHILS % (AUTO) 0.4 % (0.0-2.0); EOSINOPHILS % (AUTO) 1.5 % (0.0-6.0); HEMATOCRIT 40 % (33-45); HEMOGLOBIN 13.8 g/dL (11.5-14.8); LYMPHOCYTES # (AUTO) 1.7 /CMM (0.8-4.8); LYMPHOCYTES % (AUTO) 22.2 % (20.0-44.0); MEAN CORPUSCULAR HGB CONC 34 g/dl (31.0-36.0); MEAN CORPUSCULAR VOLUME 87 fL (82-100); MONOCYTES # (AUTO) 0.5 /CMM (0.1-1.30); MONOCYTES % (AUTO) 6.9 % (2.0-12.0); NEUTROPHILS # (AUTO) 5.4 /CMM (1.8-8.9); PLATELET COUNT (AUTO) 141 /CMM (150-450); RDW COEFFICIENT OF VARIATION 13.1 (11.5-15.0); RED BLOOD CELL COUNT(AUTO) 4.63 MIL/uL (4.0-5.2); WHITE BLOOD COUNT (AUTO) 7.7 K/uL (4.3-11.0)
[2017-11-08 15:03] LABS: ALBUMIN 3.9 g/dL (3.4-5.0); BILIRUBIN,TOTAL 0.7 mg/dL (0.2-1.0); CALCIUM, SERUM 9.1 mg/dL (8.5-10.1); CREATININE 1.5 mg/dL (0.6-1.3); MAGNESIUM 2.6 mg/dL (1.8-2.4); TOTAL PROTEIN, SERUM 7.5 g/dL (6.4-8.2)
[2017-11-08 16:00] VITALS: BP 125/75
[2017-11-08] MEDS ORDERED: risperiDONE 1 MG TABLET PO SCH (17:00)
[2017-11-08 20:00] VITALS: BP 132/56
[2017-11-08] MEDS: LamoTRIgine 100 MG TABLET PO SCH (21:34)
[2017-11-08] MEDS: SENNOSIDES 8.6 MG TABLET PO SCH (21:34)
[2017-11-08] MEDS: TEMAZEPAM 7.5 MG CAPSULE PO PRN (22:02)
[2017-11-09 08:27] VITALS: BP 142/71
[2017-11-09] MEDS: ATORVASTATIN 10 MG TABLET PO SCH (08:41)
[2017-11-09] MEDS: DOCUSATE SODIUM 100 MG CAPSULE PO SCH ×2 (08:41→17:45)
[2017-11-09] MEDS: clonazePAM 0.5 MG TABLET PO SCH ×3 (08:41→17:45)
[2017-11-09] MEDS: TRIHEXYPHENIDYL HCL 2 MG TABLET PO SCH (08:41)
[2017-11-09] MEDS: AMLODIPINE BESYLATE 10 MG TABLET PO SCH (08:41)
[2017-11-09] MEDS: BENZTROPINE MESYLATE (1 MG) 1 MG TABLET PO SCH ×3 (08:41→17:45)
[2017-11-09] MEDS: PANTOPRAZOLE 40 MG TABLET.DR PO SCH (08:41)
[2017-11-09] MEDS: risperiDONE 1 MG TABLET PO SCH ×3 (08:41→17:45)
[2017-11-09] MEDS: Z GUARD REMEDY 2 OZ OINT TP SCH (08:42)
--- NOTE | 2017-11-09 12:35 | NUR ---
Initial Discharge Plan: Pt will be discharged to [facility] Address: [address] [place] [address] [place] [address] SW will help form a safe and proper discharge in collaboration with psychiatrist.
--- NOTE | 2017-11-09 12:37 | NUR ---
SW contacted pts person to notify Riya Tan [phone]. SW left voicemail.
[2017-11-09 17:03] VITALS: BP 116/68
[2017-11-09 20:00] VITALS: BP_SYST 113; BP_SYST 142; BP_DIAS 76; BP_DIAS 80
[2017-11-09] MEDS: SENNOSIDES 8.6 MG TABLET PO SCH (21:36)
[2017-11-09] MEDS: LamoTRIgine 100 MG TABLET PO SCH (21:36)
[2017-11-10 08:00] VITALS: BP 117/87
[2017-11-10] MEDS: DOCUSATE SODIUM 100 MG CAPSULE PO SCH ×2 (09:12→17:24)
[2017-11-10] MEDS: risperiDONE 1 MG TABLET PO SCH ×3 (09:12→17:24)
[2017-11-10] MEDS: clonazePAM 0.5 MG TABLET PO SCH ×3 (09:13→17:24)
[2017-11-10] MEDS: PANTOPRAZOLE 40 MG TABLET.DR PO SCH (09:13)
[2017-11-10] MEDS: BENZTROPINE MESYLATE (1 MG) 1 MG TABLET PO SCH ×3 (09:13→17:24)
[2017-11-10] MEDS: AMLODIPINE BESYLATE 10 MG TABLET PO SCH (09:13)
[2017-11-10] MEDS: ATORVASTATIN 10 MG TABLET PO SCH (09:13)
[2017-11-10] MEDS: TRIHEXYPHENIDYL HCL 2 MG TABLET PO SCH (09:13)
[2017-11-10] MEDS: Z GUARD REMEDY 2 OZ OINT TP SCH (10:46)
[2017-11-10 16:00] VITALS: BP 113/79
[2017-11-10 20:00] VITALS: BP 123/62
[2017-11-10] MEDS: SENNOSIDES 8.6 MG TABLET PO SCH (21:35)
[2017-11-10] MEDS: LamoTRIgine 100 MG TABLET PO SCH (21:36)
[2017-11-11 08:00] VITALS: BP 117/75
[2017-11-11] MEDS: DOCUSATE SODIUM 100 MG CAPSULE PO SCH ×2 (08:40→16:19)
[2017-11-11] MEDS: TRIHEXYPHENIDYL HCL 2 MG TABLET PO SCH (08:40)
[2017-11-11] MEDS: AMLODIPINE BESYLATE 10 MG TABLET PO SCH (08:40)
[2017-11-11] MEDS: ATORVASTATIN 10 MG TABLET PO SCH (08:40)
[2017-11-11] MEDS: PANTOPRAZOLE 40 MG TABLET.DR PO SCH (08:40)
[2017-11-11] MEDS: BENZTROPINE MESYLATE (1 MG) 1 MG TABLET PO SCH ×3 (08:41→16:19)
[2017-11-11] MEDS: risperiDONE 1 MG TABLET PO SCH ×3 (08:41→16:19)
[2017-11-11] MEDS: clonazePAM 0.5 MG TABLET PO SCH ×3 (08:41→16:19)
[2017-11-11] MEDS: Z GUARD REMEDY 2 OZ OINT TP SCH (09:03)
--- NOTE | 2017-11-11 09:27 | NUR ---
GPS/RN-NOTES PATIENT REQUESTING FOR TYLENOL, TYLENOL 650MG P.O GIVEN PRN ORDER. WILL CONT.MONITORING .
--- NOTE | 2017-11-11 10:30 | NUR ---
GPS/RN-NOTES PATIENT LAYING IN HER BED,AWAKE,ALERT ,CALM NO ACUTE DISTRESS NOTED,DENIES ANY PAIN OR DISCOMFORT AT THIS TIME.
[2017-11-11 16:00] VITALS: BP 104/58
[2017-11-11 20:00] VITALS: BP 116/74
[2017-11-11] MEDS: TEMAZEPAM 7.5 MG CAPSULE PO PRN (21:41)
[2017-11-11] MEDS: SENNOSIDES 8.6 MG TABLET PO SCH (21:41)
[2017-11-11] MEDS: LamoTRIgine 100 MG TABLET PO SCH (21:41)
[2017-11-12 08:17] VITALS: BP 104/58
[2017-11-12] MEDS: TRIHEXYPHENIDYL HCL 2 MG TABLET PO SCH (08:54)
[2017-11-12] MEDS: PANTOPRAZOLE 40 MG TABLET.DR PO SCH (08:54)
[2017-11-12] MEDS: ATORVASTATIN 10 MG TABLET PO SCH (08:55)
[2017-11-12] MEDS: AMLODIPINE BESYLATE 10 MG TABLET PO SCH (08:55)
[2017-11-12] MEDS: risperiDONE 1 MG TABLET PO SCH ×3 (08:55→17:04)
[2017-11-12] MEDS: DOCUSATE SODIUM 100 MG CAPSULE PO SCH ×2 (08:55→17:01)
[2017-11-12] MEDS: BENZTROPINE MESYLATE (1 MG) 1 MG TABLET PO SCH ×3 (08:55→17:03)
[2017-11-12] MEDS: clonazePAM 0.5 MG TABLET PO SCH ×3 (08:55→17:03)
[2017-11-12] MEDS: Z GUARD REMEDY 2 OZ OINT TP SCH (08:58)
[2017-11-12 16:00] VITALS: BP 102/56
[2017-11-12 19:46] VITALS: BP 106/67
[2017-11-12] MEDS: LamoTRIgine 100 MG TABLET PO SCH (21:25)
[2017-11-12] MEDS: SENNOSIDES 8.6 MG TABLET PO SCH (21:25)
[2017-11-13 08:00] VITALS: BP 126/78
[2017-11-13] MEDS: ATORVASTATIN 10 MG TABLET PO SCH (08:37)
[2017-11-13] MEDS: BENZTROPINE MESYLATE (1 MG) 1 MG TABLET PO SCH ×3 (08:37→16:57)
[2017-11-13] MEDS: TRIHEXYPHENIDYL HCL 2 MG TABLET PO SCH (08:37)
[2017-11-13] MEDS: PANTOPRAZOLE 40 MG TABLET.DR PO SCH (08:37)
[2017-11-13] MEDS: clonazePAM 0.5 MG TABLET PO SCH ×3 (08:37→16:57)
[2017-11-13] MEDS: DOCUSATE SODIUM 100 MG CAPSULE PO SCH ×2 (08:38→16:57)
[2017-11-13] MEDS: AMLODIPINE BESYLATE 10 MG TABLET PO SCH (08:38)
[2017-11-13] MEDS: Z GUARD REMEDY 2 OZ OINT TP SCH (08:40)
[2017-11-13] MEDS: risperiDONE 1 MG TABLET PO SCH ×3 (08:52→16:57)
[2017-11-13 15:57] VITALS: BP 110/59
[2017-11-13 19:48] VITALS: BP 106/59
[2017-11-13] MEDS: LamoTRIgine 100 MG TABLET PO SCH (21:34)
[2017-11-13] MEDS: SENNOSIDES 8.6 MG TABLET PO SCH (21:35)
[2017-11-13] MEDS: TEMAZEPAM 7.5 MG CAPSULE PO PRN (21:48)
[2017-11-14 08:00] VITALS: BP 110/74
[2017-11-14] MEDS: TRIHEXYPHENIDYL HCL 2 MG TABLET PO SCH (08:29)
[2017-11-14] MEDS: BENZTROPINE MESYLATE (1 MG) 1 MG TABLET PO SCH ×3 (08:29→17:43)
[2017-11-14] MEDS: AMLODIPINE BESYLATE 10 MG TABLET PO SCH (08:30)
[2017-11-14] MEDS: DOCUSATE SODIUM 100 MG CAPSULE PO SCH ×2 (08:30→17:44)
[2017-11-14] MEDS: ATORVASTATIN 10 MG TABLET PO SCH (08:30)
[2017-11-14] MEDS: PANTOPRAZOLE 40 MG TABLET.DR PO SCH (08:31)
[2017-11-14] MEDS: clonazePAM 0.5 MG TABLET PO SCH ×3 (08:31→17:43)
[2017-11-14] MEDS: risperiDONE 1 MG TABLET PO SCH ×3 (08:31→17:43)
[2017-11-14] MEDS: Z GUARD REMEDY 2 OZ OINT TP SCH (08:41)
--- NOTE | 2017-11-14 12:01 | NUR ---
[id number]-[id number]: NOTIFIED DR. HAIDER ABOUT CT RESULTS ON 11/06/17: SMALL LACUNAR INFARCTS IN BILATERAL NUCLEI AND PROMINENT RETROCEREBELLAR CSF SPACE WHICH MAY REPRESENT CLARISSA MAGNA VERSUS ARACHNOID CYST. DR. HAIDER ORDERED ASPIRIN 81 MG PO AND TO CALL RADIOLOGY TO FIND OUT IF THE INFRACT IS OLD OR NEW.
--- NOTE | 2017-11-14 12:05 | NUR ---
[id number]: CALLED RADIOLOGY TO CLARIFY IF INFRACT IS AN OLD OR NEW INFARCT AND THE RADIOLOGIST SAID IT WAS A OLD INFRACT. NOTIFIED DR. ABARCA AND NO NEW ORDERS GIVEN AT THIS TIME.
[2017-11-14] MEDS: ASPIRIN 81 MG TAB.CHEW PO SCH (13:08)
[2017-11-14 16:00] VITALS: BP 119/75
[2017-11-14 19:59] VITALS: BP 145/90
[2017-11-14] MEDS: LamoTRIgine 100 MG TABLET PO SCH (21:04)
[2017-11-14] MEDS: SENNOSIDES 8.6 MG TABLET PO SCH (21:04)
[2017-11-14] MEDS: TEMAZEPAM 7.5 MG CAPSULE PO PRN (21:52)
[2017-11-15] MEDS: Z GUARD REMEDY 2 OZ OINT TP SCH (09:00)
[2017-11-15 09:02] VITALS: BP 121/84
[2017-11-15] MEDS: PANTOPRAZOLE 40 MG TABLET.DR PO SCH (09:31)
[2017-11-15] MEDS: TRIHEXYPHENIDYL HCL 2 MG TABLET PO SCH (09:31)
[2017-11-15] MEDS: BENZTROPINE MESYLATE (1 MG) 1 MG TABLET PO SCH ×3 (09:31→17:14)
[2017-11-15] MEDS: AMLODIPINE BESYLATE 10 MG TABLET PO SCH (09:31)
[2017-11-15] MEDS: ATORVASTATIN 10 MG TABLET PO SCH (09:32)
[2017-11-15] MEDS: DOCUSATE SODIUM 100 MG CAPSULE PO SCH ×2 (09:32→17:14)
[2017-11-15] MEDS: risperiDONE 1 MG TABLET PO SCH ×3 (09:32→17:14)
[2017-11-15] MEDS: clonazePAM 0.5 MG TABLET PO SCH ×3 (09:32→17:14)
[2017-11-15] MEDS: ASPIRIN 81 MG TAB.CHEW PO SCH (09:32)
--- NOTE | 2017-11-15 11:06 | NUR ---
Discharge Note: Pt will be [facility] to [facility] via med response ambulance trip #[id number] Address: [address] [place] [address] at 12:00pm. Pts mood and affect was pleasant; pt appeared happy and smiling as SW informed pt of discharge. Pt denied suicidal/ homicidal ideations. Pt has a history of opioid abuse so will be referred to [facility], [address] [id number] , [facility], [address] [place] [address]. Pt. may walk in to [facility] for screening between 8.00 am and 1.00 pm and will go there on 11/16/17. Pt was also referred to [facility], [address] [place], [place] [id number] where she can present at 0900 on 11/16/17. SW facilitated info to IDT team who are in agreement with discharge arrangement. The multidisciplinary exitcare form was done, printed, signed, and given to the patient.
--- NOTE | 2017-11-15 15:54 | NUR ---
Updated Discharge Plan: Pt was not discharged on 11/15/17 due to facility not having bed availability. However pt. will be discharged on 11/16/17 at 10:00 back to [facility] as bed was made available for pt.
[2017-11-15 16:00] VITALS: BP 123/79
[2017-11-15 20:05] VITALS: BP 123/72
[2017-11-15] MEDS: LamoTRIgine 100 MG TABLET PO SCH (21:19)
[2017-11-15] MEDS: SENNOSIDES 8.6 MG TABLET PO SCH (21:19)
[2017-11-15] MEDS: TEMAZEPAM 7.5 MG CAPSULE PO PRN (22:19)
--- NOTE | 2017-11-16 08:34 | NUR ---
Discharge Note: Pt will be discharge back to [facility] via med response ambulance trip #[id number] Address: [address] [place] [address] at 10:00am. Pts mood and affect was pleasant; pt appeared happy and smiling as SW informed pt of discharge. Pt denied suicidal/ homicidal ideations. Pt has a history of opioid abuse so will be referred to [facility], [address] [id number] , [facility], [address] [place] [address]. Pt. may walk in to [facility] for screening between 8.00 am and 1.00 pm and will go there on 11/16/17. Pt was also referred to [facility], [address] [place], [place] [id number] where she can present at 0900 on 11/16/17. SW facilitated info to IDT team who are in agreement with discharge arrangement. The multidisciplinary exitcare form was done, printed, signed, and given to the patient.
[2017-11-16] MEDS: clonazePAM 0.5 MG TABLET PO SCH (08:44)
[2017-11-16] MEDS: DOCUSATE SODIUM 100 MG CAPSULE PO SCH (08:44)
[2017-11-16] MEDS: TRIHEXYPHENIDYL HCL 2 MG TABLET PO SCH (08:44)
[2017-11-16] MEDS: risperiDONE 1 MG TABLET PO SCH (08:44)
[2017-11-16 08:45] VITALS: BP 111/70
[2017-11-16] MEDS: PANTOPRAZOLE 40 MG TABLET.DR PO SCH (08:45)
[2017-11-16 08:46] VITALS: BP 111/70
[2017-11-16] MEDS: AMLODIPINE BESYLATE 10 MG TABLET PO SCH (08:46)
[2017-11-16] MEDS: ATORVASTATIN 10 MG TABLET PO SCH (08:46)
[2017-11-16] MEDS: ASPIRIN 81 MG TAB.CHEW PO SCH (08:46)
[2017-11-16] MEDS: BENZTROPINE MESYLATE (1 MG) 1 MG TABLET PO SCH (08:46)
[2017-11-16] MEDS: Z GUARD REMEDY 2 OZ OINT TP SCH (09:09)
--- NOTE | 2017-11-16 10:22 | NUR ---
GPS DISCHARGE NOTE PT WAS DISCHARGED FROM UNIT IN STABLE CONDITION. ALL NEEDS WERE MET DURING SHIFT AND ORDERS CARRIED OUT ACCORDINGLY. ALL DUE MEDS WERE GIVEN. PT WAS CLEARED BY BOTH THE PSYCHIATRIST (DR. SOTO) AND MEDICAL MD (DR. HAIDER). ORDERS WERE GIVEN TO CONTINUE ALL MEDICATIONS. MED RECONCILIATION COPY WAS PROVIDED TO THE AMBULANCE STAFF TO GIVE TO PT'S FACILITY. PT DENIED ANY SUICIDAL OR HOMICIDAL IDEATION UPON DISCHARGE. SHE WAS COMPLIANT WITH MEDICATIONS AND COOPERATIVE WITH TREATMENT PLAN. BEHAVIOR IMPROVED, PSYCHIATRIC TX PLANS MET, MEDICAL TX PLAN DEFERRED FOR CONTINUAL MONITORING. EDUCATION PROVIDED TO PT USING EXITCARE AND DISCHARGE MATERIALS. PT SIGNED ALL DISCHARGE PAPERWORK. WOUND PHOTOS WERE TAKEN AND DOCUMENTED IN CHART PRIOR TO D/C. ALL PT BELONGINGS VERIFIED WITH PHOTOGRAPH ENLARGER AND GIVEN TO PT. REPORT WAS GIVEN TO ISREAL THE RECEIVING RN AT [facility]. PT SAFELY LEFT VIA AMBULANCE TRANSPORT.
--- NOTE | 2017-12-05 08:22 | NUR ---
SW attempted to contact pt for 15 day substance abuse follow up. contact number no longer valid.
== END 2017-11-16 10:10 | DRG 885 ==
LOC: ER 11:29 → GPS 15:50
PROVIDERS: ADMIT Psychiatry & Neurology Psychosomatic Medicine; ATTEND Nurse Practitioner Acute Care
DX: F25.0 Schizoaffective disorder, bipolar type (principal); N17.0 Acute kidney failure with tubular necrosis; G20 Parkinson's disease; F03.90 Unspecified dementia, unspecified severity, without behavioral disturbance, psychotic disturbance, mood disturbance, and anxiety; F41.9 Anxiety disorder, unspecified; E78.5 Hyperlipidemia, unspecified; I10 Essential (primary) hypertension; K21.9 Gastro-esophageal reflux disease without esophagitis; F19.90 Other psychoactive substance use, unspecified, uncomplicated; R26.81 Unsteadiness on feet; Z73.6 Limitation of activities due to disability
CPT/HCPCS: 36415; 70450-TC; 80048-TC; 80053-TC; 80061-TC; 80076-TC; 80305; 81000-TC; 83735-TC; 84703-TC; 85025-TC; 85730-TC; 87081-TC; A4606; G0480; J3490; Z7610

== ENCOUNTER 2019-08-02 15:44 | Inpatient (IN) | payer MEDICARE, OTHER ==
[~2019-08-02] VITALS: Ht 157.5 cm; Wt 72.6 kg
[~2019-08-02 15:44] MED LIST changes: +ACET-2605 PO; +ACET-868 PO; -DIPH50CA37 PO; +DOCU100C36 PO; +LAMO100T2 PO; -LISI-603 PO; +LURA40TA PO; +MELA3TAB41 PO; -OMEG1CAP55 PO; +OMEP40CA13 PO; +SENN-261 PO
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
[2019-08-02 17:11] LABS: BASOPHILS # (AUTO) 0.1 /CMM (0.0-0.2); BASOPHILS % (AUTO) 0.5 % (0.0-2.0); EOSINOPHILS % (AUTO) 0.2 % (0.0-6.0); HEMATOCRIT 40 % (33-45); HEMOGLOBIN 13.3 g/dL (11.5-14.8); LYMPHOCYTES # (AUTO) 1.9 /CMM (0.8-4.8); LYMPHOCYTES % (AUTO) 17.6 % (20.0-44.0); MEAN CORPUSCULAR HGB CONC 34 g/dl (31.0-36.0); MEAN CORPUSCULAR VOLUME 92 fL (82-100); MONOCYTES # (AUTO) 0.8 /CMM (0.1-1.30); MONOCYTES % (AUTO) 7.2 % (2.0-12.0); NEUTROPHILS # (AUTO) 8.1 /CMM (1.8-8.9); NEUTROPHILS % (AUTO) 74.5 % (43.0-81.0); PLATELET COUNT (AUTO) 215 /CMM (150-450); RED BLOOD CELL COUNT(AUTO) 4.31 MIL/uL (4.0-5.2); WHITE BLOOD COUNT (AUTO) 10.9 K/uL (4.3-11.0)
[2019-08-02 17:15] LABS: APPEARANCE,URINE Clear (CLEAR); BILIRUBIN,URINE Negative (NEGATIVE); BLOOD, URINE Negative Ery/uL (NEGATIVE); COLOR,URINE Yellow (YELLOW); KETONES,URINE Negative (NEGATIVE); LEUKOCYTE ESTERASE ,URINE Negative (NEGATIVE); NITRITE, URINE Negative (NEGATIVE); PROTEIN,URINE Negative (NEGATIVE); UGLUCOSE Negative (NEGATIVE); UROBILINOGEN,URINE 0.2 EU/dL (0.2)
[2019-08-02 17:20] LABS: CALCIUM, SERUM 9.6 mg/dL (8.5-10.1); CARBON DIOXIDE 28 mmol/L (21-32); CHLORIDE 103 mmol/L (98-107); CREATININE 1.3 mg/dL (0.6-1.3); GLUCOSE 121 mg/dL (74-106); POTASSIUM 4.1 mmol/L (3.5-5.1); SODIUM SERUM 141 mmol/L (136-145); UREA NITROGEN, BLOOD 15 mg/dL (7-18)
[2019-08-02 17:24] LABS: ACETAMINOPHEN < 2 ug/ml (10-30); ALANINE AMINOTRANSFERASE 27 U/L (12-78); ALBUMIN 4.3 g/dL (3.4-5.0); ALCOHOL, BLOOD < 3 mg/dL (0-0); ALKALINE PHOSPHATASE 157 U/L (46-116); ASPARTATE AMINOTRANSFERASE 23 U/L (15-37); BILIRUBIN,DIRECT 0.1 mg/dL (0.0-0.2); BILIRUBIN,TOTAL 0.3 mg/dL (0.2-1.0); SALICYLATE < 2.8 mg/dL (2.8-20.0)
--- NOTE | 2019-08-02 17:43 | NUR ---
CALLED NEEDLE FELT MAKING MACHINE OPERATOR CHUCK, STATES ON THE WAY TO EVAL PT
--- NOTE | 2019-08-02 18:30 | NUR ---
WET PROCESS MILLER CHUCK MARTINI AT BEDSIDE.
--- NOTE | 2019-08-02 18:40 | NUR ---
JOSS HOUSE KEEPER CHUCK AT BEDSIDE
--- NOTE | 2019-08-02 19:52 | NUR ---
GPS [id number]
--- NOTE | 2019-08-02 20:34 | NUR ---
REPORT GIVEN TO SRIKANTH SCOTT
[2019-08-02 21:00] VITALS: BP 134/72
[2019-08-02] MEDS ORDERED: LORAZEPAM 0.5 MG TABLET PO PRN (21:30)
[2019-08-02] MEDS ORDERED: BLOOD SUGAR DIAGNOSTIC 1 EACH STRIP IN ONE (21:30)
--- NOTE | 2019-08-02 22:00 | NUR ---
RN NOTES; NOTIFIED NEXT OF KIN FOR ADMISSION ,TRICIALUCAS # [phone]
[2019-08-02] MEDS ORDERED: ACETAMINOPHEN 325 MG TABLET PO PRN (23:30)
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
[2019-08-03] MEDS: TEMAZEPAM 7.5 MG CAPSULE PO PRN ×2 (00:27→23:31)
[2019-08-03 08:00] VITALS: BP 127/96
--- NOTE | 2019-08-03 08:03 | NUR ---
GIVEN ATIVAN PO FOR ANXIETY.
[2019-08-03] MEDS: TRIHEXYPHENIDYL HCL 2 MG TABLET PO SCH ×2 (08:47→09:00)
[2019-08-03] MEDS: ATORVASTATIN 10 MG TABLET PO SCH (08:47)
[2019-08-03] MEDS: AMLODIPINE BESYLATE 10 MG TABLET PO SCH (08:48)
[2019-08-03] MEDS: DOCUSATE SODIUM 100 MG CAPSULE PO SCH ×2 (08:48→18:31)
[2019-08-03] MEDS: PANTOPRAZOLE 40 MG TABLET.DR PO SCH (08:48)
--- NOTE | 2019-08-03 11:42 | NUR ---
PACING BACK AND FORTH IN UNIT,RYAN OLMOS. REQUESTS.DR. SOTO MADE AWARE PT. REQUESTING TEGRETOL AND LAMICTAL.
[2019-08-03] MEDS: MAG HYDROX/AL HYDROX/SIMETH 30 ML UDC PO PRN (14:14)
[2019-08-03] MEDS: ALPRAZOLAM 0.25 MG TABLET PO PRN (15:08)
--- NOTE | 2019-08-03 15:18 | NUR ---
STATES" I FEEL A SEIZURE COMING ON".PT. GIVEN XANAX.MED ORDERED PT. STATES SHE HAS POOR EFFECT FROM ATIVAN,ATIVAN DC'D.
[2019-08-03 16:00] VITALS: BP 136/95
[2019-08-03] MEDS: BENZTROPINE MESYLATE (1 MG) 1 MG TABLET PO SCH ×2 (17:00→18:31)
--- NOTE | 2019-08-03 18:00 | NUR ---
WITH ATTEMPT TO GIVE LANETTE. MEDS PT.STATES ALLERGIC TO COGENTIN-DR. SOTO CALLED AND GIVEN NEW ORDERS.
[2019-08-03] MEDS: LamoTRIgine 25 MG TABLET PO SCH (18:31)
[2019-08-03 20:50] VITALS: BP_SYST 127; BP_SYST 136; BP_DIAS 95; BP_DIAS 97
[2019-08-03] MEDS: ARIPIPRAZOLE 5 MG TABLET PO SCH (21:39)
[2019-08-03] MEDS: SENNOSIDES 8.6 MG TABLET PO SCH (21:39)
[2019-08-03] MEDS: OXCARBAZEPINE 150 MG TABLET PO SCH (21:40)
[2019-08-03] MEDS ORDERED: Medication Not On Formulary EA (Melatonin 3 MG) PO SCH (22:00)
[2019-08-03] MEDS ORDERED: LamoTRIgine 100 MG TABLET PO SCH ×2 (22:00)
[2019-08-04] MEDS: ALPRAZOLAM 0.25 MG TABLET PO PRN ×3 (07:01→19:04)
[2019-08-04] MEDS: PANTOPRAZOLE 40 MG TABLET.DR PO SCH (07:33)
[2019-08-04 08:00] VITALS: BP 137/68
[2019-08-04] MEDS: AMLODIPINE BESYLATE 10 MG TABLET PO SCH (08:26)
[2019-08-04] MEDS: DOCUSATE SODIUM 100 MG CAPSULE PO SCH ×2 (08:26→16:44)
[2019-08-04] MEDS: ATORVASTATIN 10 MG TABLET PO SCH (08:27)
[2019-08-04] MEDS: OXCARBAZEPINE 150 MG TABLET PO SCH ×2 (08:27→21:45)
[2019-08-04] MEDS: LamoTRIgine 25 MG TABLET PO SCH ×2 (08:27→16:45)
[2019-08-04] MEDS: MAGNESIUM HYDROXIDE 30 ML UDC PO PRN (08:42)
[2019-08-04] MEDS ORDERED: BENZTROPINE MESYLATE (1 MG) 1 MG TABLET PO SCH (09:00)
[2019-08-04] MEDS ORDERED: TRIHEXYPHENIDYL HCL 2 MG TABLET PO SCH ×3 (09:00→17:00)
[2019-08-04] MEDS: TRIHEXYPHENIDYL HCL 2 MG TABLET PO SCH ×2 (12:36→16:45)
--- NOTE | 2019-08-04 13:10 | NUR ---
RN NOTE: PT C/O ANXIETY. REQUESTING XANAX. MED WITH XANAX 0.25MG PO.
[2019-08-04 16:00] VITALS: BP 146/98
[2019-08-04 20:50] VITALS: BP 159/56
[2019-08-04] MEDS: SENNOSIDES 8.6 MG TABLET PO SCH ×2 (21:44→21:45)
[2019-08-04] MEDS: ARIPIPRAZOLE 5 MG TABLET PO SCH (21:45)
[2019-08-04] MEDS: TEMAZEPAM 7.5 MG CAPSULE PO PRN (22:56)
[2019-08-05] MEDS: ALPRAZOLAM 0.25 MG TABLET PO PRN ×3 (06:11→22:19)
--- NOTE | 2019-08-05 06:13 | NUR ---
PATIENT C/O ANXIETY ,XANAX 0.25 MG PO GIVEN .
--- NOTE | 2019-08-05 06:37 | NUR ---
SKIN ASSESSMENT DONE, SKIN CLEAR. NO PICTURES TAKEN
[2019-08-05] MEDS: MAG HYDROX/AL HYDROX/SIMETH 30 ML UDC PO PRN (07:22)
[2019-08-05] MEDS: PANTOPRAZOLE 40 MG TABLET.DR PO SCH (07:22)
[2019-08-05] MEDS: MAGNESIUM HYDROXIDE 30 ML UDC PO PRN ×2 (07:22→21:06)
[2019-08-05 08:00] VITALS: BP 156/90
[2019-08-05] MEDS: DOCUSATE SODIUM 100 MG CAPSULE PO SCH ×2 (08:13→16:23)
[2019-08-05] MEDS: TRIHEXYPHENIDYL HCL 2 MG TABLET PO SCH ×3 (08:13→16:31)
[2019-08-05] MEDS: OXCARBAZEPINE 150 MG TABLET PO SCH ×2 (08:14→21:08)
[2019-08-05] MEDS: LamoTRIgine 25 MG TABLET PO SCH ×2 (08:14→16:22)
[2019-08-05] MEDS: ATORVASTATIN 10 MG TABLET PO SCH (08:14)
[2019-08-05] MEDS: AMLODIPINE BESYLATE 10 MG TABLET PO SCH (08:14)
--- NOTE | 2019-08-05 11:08 | NUR ---
FAMILY CONTACT: NEETU contacted pts aunt/Probate Conservator Carol Hicks [phone] to discuss pts discharge and treatment plan. NEETU informed her that pt wishes to return to her [place] [address] [place] [address]. Aunt stated that returning to her home depends on pts stabilization and stated that if she feels pt is not stable enough to return to her home then pt will have to be discharged to a SNF. Aunt also stated that pt has been hallucinating and stating she sees spiders on the leger and sees her cousins. NEETU will help form a safe and proper discharge and collaborate with MD and aunt.
--- NOTE | 2019-08-05 11:55 | NUR ---
INITIAL DISCHARGE PLAN: Per pt she wishes to return to her aunts cashiers [address] [place] [address]. However, per Carol [phone], she has not evaluate pts behavior before she can return, if not pt will need SNF placement. NEETU will help form a safe and proper discharge in collaboration with .
[2019-08-05 16:00] VITALS: BP 153/95
[2019-08-05 20:45] VITALS: BP 161/105
[2019-08-05] MEDS: SENNOSIDES 8.6 MG TABLET PO SCH (21:10)
[2019-08-05] MEDS: ARIPIPRAZOLE 5 MG TABLET PO SCH (22:19)
[2019-08-06] MEDS: ALPRAZOLAM 0.25 MG TABLET PO PRN (06:48)
[2019-08-06] MEDS: PANTOPRAZOLE 40 MG TABLET.DR PO SCH (07:36)
[2019-08-06 08:00] VITALS: BP 116/89
[2019-08-06] MEDS: DOCUSATE SODIUM 100 MG CAPSULE PO SCH ×2 (08:54→16:13)
[2019-08-06] MEDS: LamoTRIgine 25 MG TABLET PO SCH ×2 (08:55→16:13)
[2019-08-06] MEDS: TRIHEXYPHENIDYL HCL 2 MG TABLET PO SCH ×3 (08:55→16:20)
[2019-08-06] MEDS: OXCARBAZEPINE 150 MG TABLET PO SCH ×2 (08:55→21:02)
[2019-08-06] MEDS: ATORVASTATIN 10 MG TABLET PO SCH (08:56)
[2019-08-06] MEDS: AMLODIPINE BESYLATE 10 MG TABLET PO SCH (08:59)
[2019-08-06] MEDS ORDERED: BISACODYL SUPP (10 MG) 10 MG/SUPP.RECT SUPP.RECT RC PRN (10:30)
[2019-08-06] MEDS ORDERED: MAGNESIUM CITRATE 296 ML BOTTLE PO ONE (10:30)
[2019-08-06] MEDS: VITAMIN B COMP W-C 1 TAB TABLET PO SCH (10:30)
--- NOTE | 2019-08-06 11:57 | NUR ---
INDIVIDUAL MEETING: SW met with pt and provided intervention discussing appropriate boundaries and focusing on her recovery. SW explained that going to the nurses station often and demanding things was no appropriate behavior, pt was receptive to intervention and stated she will work on her behavior.
--- NOTE | 2019-08-06 15:08 | NUR ---
RN NOTE: PT WITH INCREASED AGITATION AND IRRITABILITY. CALLING PATIENT'S RIGHT'S. STATING THERE IS AN "EMERGENCY, LIKE A CODE BLUE" PT OFFERED XANAX PO PRN. PT REFUSED. WILL CONT TO MONITOR PT FOR AGITATION AND INCREASED ALYCE.
--- NOTE | 2019-08-06 15:33 | NUR ---
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 Pt was difficult to redirect she is manic and hyperverbal and was having a difficult time following directions. Pts thought process is tangential and her insight is impaired.
[2019-08-06 16:00] VITALS: BP 161/83
[2019-08-06 20:22] VITALS: BP 152/110
[2019-08-06] MEDS: SENNOSIDES 8.6 MG TABLET PO SCH (21:25)
[2019-08-06] MEDS: ARIPIPRAZOLE 5 MG TABLET PO SCH (22:05)
[2019-08-06] MEDS: TEMAZEPAM 7.5 MG CAPSULE PO PRN (22:57)
--- NOTE | 2019-08-06 22:58 | NUR ---
PRN RESTORIL GIVEN PATIENT STATED SHE IS UNABLE TO SLEEP & WOULD LIKE TO TAKE HER SLEEPING PILL AT THIS TIME, PRN RESTORIL 7.5 MG PO GIVEN. WILL REASSESS FOR EFFECTIVENESS.
[2019-08-06 23:30] VITALS: BP 139/85
[2019-08-07] MEDS: ALPRAZOLAM 0.25 MG TABLET PO PRN ×4 (03:24→22:58)
--- NOTE | 2019-08-07 03:28 | NUR ---
PRN XANAX GIVEN PATIENT STATED, SHE IS FEELING ANXIOUS & WANTS TO TAKE XANAX. PRN XANAX 0.25 MG PO PRN GIVEN. WILL CONTINUE TO MONITOR.
[2019-08-07 05:52] VITALS: BP 141/89
[2019-08-07 08:00] VITALS: BP 142/92
[2019-08-07] MEDS: ATORVASTATIN 10 MG TABLET PO SCH (08:53)
[2019-08-07] MEDS: OXCARBAZEPINE 150 MG TABLET PO SCH (08:54)
[2019-08-07] MEDS: TRIHEXYPHENIDYL HCL 2 MG TABLET PO SCH ×2 (08:54→16:56)
[2019-08-07] MEDS: AMLODIPINE BESYLATE 10 MG TABLET PO SCH (08:54)
[2019-08-07] MEDS: PANTOPRAZOLE 40 MG TABLET.DR PO SCH (08:55)
[2019-08-07] MEDS: DOCUSATE SODIUM 100 MG CAPSULE PO SCH ×2 (08:55→16:56)
[2019-08-07] MEDS: LamoTRIgine 25 MG TABLET PO SCH ×2 (08:55→16:56)
[2019-08-07] MEDS: VITAMIN B COMP W-C 1 TAB TABLET PO SCH (09:33)
[2019-08-07] MEDS: MAG HYDROX/AL HYDROX/SIMETH 30 ML UDC PO PRN (09:45)
[2019-08-07 16:00] VITALS: BP 144/98
--- NOTE | 2019-08-07 16:02 | NUR ---
GROUP NOTE: SW encouraged pt to attend group therapy on this present day discussing "reality testing." Pt is not appropriate for group, pt is hyperverbal and manic. Pt does not display appropriate boundaries and is not easily redirected. Pt is unable to follow direction in a group setting.
[2019-08-07] MEDS: ARIPIPRAZOLE 5 MG TABLET PO SCH (16:56)
[2019-08-07 19:43] VITALS: BP 135/88
[2019-08-07 20:00] VITALS: BP 135/88
[2019-08-07] MEDS ORDERED: OXCARBAZEPINE 150 MG TABLET PO SCH (21:00)
[2019-08-07] MEDS: SENNOSIDES 8.6 MG TABLET PO SCH (21:42)
--- NOTE | 2019-08-07 23:02 | NUR ---
PRN XANAX GIVEN PATIENT HAS BEEN VERY ANXIOUS, PANIC, RESTLESS, PRN XANAX 0.25 MG PO GIVEN.
--- NOTE | 2019-08-08 00:05 | NUR ---
GPS RN NOTE PATIENT IS CALM & RELAXED AT THIS TIME, SLEEPING IN BED. WILL CONTINUE TO MONITOR.
[2019-08-08] MEDS: TEMAZEPAM 7.5 MG CAPSULE PO PRN (02:19)
--- NOTE | 2019-08-08 02:24 | NUR ---
PRN RESTORIL GIVEN PT STATED THAT SHE IS UNABLE TO SLEEP, WANTED TO TAKE SLEEPING PILL, RESTORIL 7.5 MG PO PRN GIVEN. WILL REASSESS FOR EFFECTIVENESS.
[2019-08-08] MEDS: ALPRAZOLAM 0.25 MG TABLET PO PRN (07:40)
[2019-08-08] MEDS: PANTOPRAZOLE 40 MG TABLET.DR PO SCH (07:40)
[2019-08-08 08:00] VITALS: BP 119/52
[2019-08-08] MEDS: ARIPIPRAZOLE 5 MG TABLET PO SCH ×3 (08:27→21:16)
[2019-08-08] MEDS: TRIHEXYPHENIDYL HCL 2 MG TABLET PO SCH ×2 (08:27→16:31)
[2019-08-08] MEDS: VITAMIN B COMP W-C 1 TAB TABLET PO SCH (08:27)
[2019-08-08] MEDS: DOCUSATE SODIUM 100 MG CAPSULE PO SCH ×2 (08:27→16:32)
[2019-08-08] MEDS: ATORVASTATIN 10 MG TABLET PO SCH (08:27)
[2019-08-08] MEDS: LamoTRIgine 25 MG TABLET PO SCH ×2 (08:27→16:31)
[2019-08-08] MEDS: AMLODIPINE BESYLATE 10 MG TABLET PO SCH (08:28)
[2019-08-08] MEDS: OXCARBAZEPINE 150 MG TABLET PO SCH ×4 (08:29→21:17)
--- NOTE | 2019-08-08 09:54 | NUR ---
INDIVIDUAL INTERVENTION: NEETU provided clinical intervention to pt due to her current manic state and discussed pts inappropriate behavior and medication compliance. Pt agree Addendum: 08/08/19 at 0957 by ANABEL DE ANDA ERROR
--- NOTE | 2019-08-08 09:57 | NUR ---
INDIVIDUAL INTERVENTION: NEEUT provided clinical intervention to pt due to her current manic state and discussed pts inappropriate behavior and medication compliance. SW validated pts level of distress and demonstrated acceptance through listening in a calm and nurturing manner. SW provided insight and informed pt that her behavior was getting worse and her mood continued to be unable and was not stable for discharge. Pt agreed and stated that she needed her medication to be changed and that she feels Abilify is not working. Pt has remained manic and has not been sleeping well since her admission. NEETU will discuss possible medication change with .
--- NOTE | 2019-08-08 13:45 | NUR ---
GPS RN NOTE: DESPITE MULTIPLE ATTEMPTS AND EDUCATION OF RISKS AND BENEFITS, REALITY ORIENTATION AND SYMPTOM MANAGEMENT PATIENT IS REFUSING 1300 MEDICATION AND IS STATING THAT SHE WILL NOT BE TAKING 1700 MEDICATION EITHER. SHE STATES SHE WILL ONLY TAKE MEDS TWICE A DAY, MORNING AND NIGHT. AND THAT SHE IS BEING GIVEN TOO MANY MEDS, DOES NOT NEED ANY, AND THEY ARE MAKING HER SICK TO HER STOMACH.
[2019-08-08] MEDS: MAG HYDROX/AL HYDROX/SIMETH 30 ML UDC PO PRN (13:54)
--- NOTE | 2019-08-08 15:27 | NUR ---
FAMILY CONTACT: SW received a call from pts aunt/Probate Conservator Carol Hicks [phone] requesting updated information. SW informed her that MD has been making frequent medication changes as pt remains manic and is displaying poor insight and judgment and inappropriate behavior. Aunt states that pt is calling her constantly and asking for things and states MD should consider a medication change. Aunt informed SW that pt is allergic to Haldol but is able to take any other antipsychotic medication and also states that pt frequently cheeks medication or induces her vomit. SW stated that she will inform RN.
--- NOTE | 2019-08-08 15:42 | NUR ---
GROUP NOTE: SW encouraged pt to participate in group therapy on this present day discussing "discharge planning." Pt states that she wishes to return to her aunts house where she lives in a back house with her dog. Pt states she is trying to behave so her aunt takes her back to live with her. Pt remains manic and hyperverbal and not easily re-directable.
[2019-08-08 16:00] VITALS: BP 144/92
[2019-08-08] MEDS: ACETAMINOPHEN 325 MG TABLET PO PRN (17:38)
[2019-08-08 20:30] VITALS: BP 125/80
[2019-08-08] MEDS: SENNOSIDES 8.6 MG TABLET PO SCH (21:17)
[2019-08-08] MEDS ORDERED: ARIPIPRAZOLE 5 MG TABLET PO SCH (22:00)
[2019-08-08 22:57] VITALS: BP 144/92
[2019-08-09] MEDS: PANTOPRAZOLE 40 MG TABLET.DR PO SCH (07:33)
[2019-08-09 08:00] VITALS: BP 119/72
--- NOTE | 2019-08-09 08:30 | NUR ---
PC HEARING NOTIFICATION: NEETU contacted pts aunt/Probate Conservator Carol Hicks [phone] and informed her that pt will be having a PC hearing on this present day at 0930.
[2019-08-09] MEDS: AMLODIPINE BESYLATE 10 MG TABLET PO SCH (08:36)
[2019-08-09] MEDS: GUAIFENESIN 300 MG/15 ML UDC PO PRN (08:36)
[2019-08-09] MEDS: VITAMIN B COMP W-C 1 TAB TABLET PO SCH (08:37)
[2019-08-09] MEDS: OXCARBAZEPINE 150 MG TABLET PO SCH ×4 (08:37→21:55)
[2019-08-09] MEDS: DOCUSATE SODIUM 100 MG CAPSULE PO SCH ×2 (08:37→16:53)
[2019-08-09] MEDS: ARIPIPRAZOLE 5 MG TABLET PO SCH ×3 (08:37→21:56)
[2019-08-09] MEDS: LamoTRIgine 25 MG TABLET PO SCH ×2 (08:37→16:53)
[2019-08-09] MEDS: TRIHEXYPHENIDYL HCL 2 MG TABLET PO SCH ×2 (08:37→16:53)
[2019-08-09] MEDS: ATORVASTATIN 10 MG TABLET PO SCH (08:37)
--- NOTE | 2019-08-09 08:50 | NUR ---
PATIENT HAS SORE THROAT. PRN ROBITUSSIN GIVEN
--- NOTE | 2019-08-09 11:38 | NUR ---
PATIENT REQUESTING ZOFRAN FOR NAUSEA AND OMEPRAZOLE. INFORMED DR PALACIOS WITH ORDERS FOR ZOFRAN AND OMEPRAZOLE. RX DOESN'T CARRY MEDICATION, CONTACTED PATIENT'S AUNT TO BRING IN THE MEDICATION. AWAITING CALL BACK.
[2019-08-09] MEDS: ACETAMINOPHEN ES 500 MG TABLET PO PRN ×2 (12:22→21:55)
[2019-08-09] MEDS: ONDANSETRON 4 MG TAB.RAPDIS SL PRN (12:22)
--- NOTE | 2019-08-09 12:22 | NUR ---
PATIENT C/O HEADACHE AND NAUSEA. PRN TYLENOL AND ZOFRAN GIVEN PO. PATIENT IS REFUSING TO TAKE 1300 TRILEPTAL AFTER MULTIPLE ATTEMPTS OF ENCOURAGEMENT.
--- NOTE | 2019-08-09 13:35 | NUR ---
THIS MORNING, PATIENT IN [facility] [facility] AT [facility]. UPON INVESTIGATION, PATIENT'S VSS, NO ACUTE DISTRESS NOTED, SKIN INTACT, NEURO CHECK COMPLETE AND INTACT. PATIENT HAS NO C/O PAIN RELATED TO INCIDENT. WILL CONTINUE TO MONITOR PATIENT AND ATTAIN TO NEEDS.
--- NOTE | 2019-08-09 14:55 | NUR ---
FAMILY CONTACT: SW received a call from pts aunt/Probate Conservator Carolerma Hicks [phone] requesting updated information. SW informed her that pt is tolerating medication change well and is less manic. SW also informed her that pts PC hearing was upheld and that pt wishes to be discharged to [facility], aunt states that pt has a trustee who will not approve of alternative placement and states that as pts probate conservator she does not approve of alternative placement other than SNF or back to her home. NEETU will continue to update pts aunt as needed.
[2019-08-09 16:00] VITALS: BP 115/65
--- NOTE | 2019-08-09 18:08 | NUR ---
PATIENT IS PORTRAYING MANIPULATIVE BEHAVIOR STATING THAT SHE IS "SEEING DOUBLE" AND IS "DIZZY" AND STATES THAT SHE WANTS TO LOWER THE DOSAGES OF HER MEDICATION DUE TO THAT REASON. AFTER SHE STATES THAT, PATIENT IS OBSERVED WALKING WITH STEADY GAIT. MINI SCOTT OFFERED TO ASSIST PATIENT TO ROOM BUT SHE STATED, "I'M FINE, I CAN WALK ON MY OWN". PATIENT WALKS TO THE NURSES STATION QUITE FREQUENTLY AND WHEN I OBSERVE HER WALKING BACK SHE HAS A STEADY GAIT. SHE MAKES ATTEMPTS AT TIMES TO COME TO THE NURSES STATION TO SAY SHE'S DIZZY AND LEANS BACK AND FORTH, AFTER DOING THAT SHE WALKS BACK TO HER ROOM WITH STEADY GAIT OBSERVED BY MYSELF AND SONIA MORSE. PATIENT HAS A BEHAVIOR OF DELIBERATELY PLACING HERSELF ON THE FLOOR TO PRETEND SHE HAS FALLEN OBSERVED BY THE GARRETT DAVIS. WHEN I ASK HER WHY SHE'S DOING THAT SHE SAYS ITS BECAUSE OF HER MEDICATIONS AND SHE WANTS THE DOSAGE LOWERED. INFORMED DR SUAREZ OF THE PATIENT'S BEHAVIOR AND INFORMED HIM THAT SHE WANTS THE DOSES DECREASED.
[2019-08-09 20:23] VITALS: BP 144/78
[2019-08-09] MEDS: ALPRAZOLAM 0.25 MG TABLET PO PRN (21:54)
[2019-08-09] MEDS: TEMAZEPAM 7.5 MG CAPSULE PO PRN ×6 (21:54→23:21)
[2019-08-09] MEDS: SENNOSIDES 8.6 MG TABLET PO SCH (21:55)
--- NOTE | 2019-08-09 21:55 | NUR ---
RN NOTE: PT MEDICATED WITH TYLENOL FOR WEINSTEIN AND XANAX FOR ANXIETY.
[2019-08-10] MEDS: GUAIFENESIN 300 MG/15 ML UDC PO PRN ×2 (03:51→10:08)
--- NOTE | 2019-08-10 03:51 | NUR ---
RN NOTE: PT MED WITH ROBITUSSIN FOR COUGH
[2019-08-10] MEDS: ONDANSETRON 4 MG TAB.RAPDIS SL PRN (07:24)
[2019-08-10] MEDS: PANTOPRAZOLE 40 MG TABLET.DR PO SCH (07:24)
--- NOTE | 2019-08-10 07:25 | NUR ---
PT C/O NAUSEA. PT MED WITH ZOFRAN PRN.
[2019-08-10 08:00] VITALS: BP 149/96
[2019-08-10] MEDS: ARIPIPRAZOLE 5 MG TABLET PO SCH ×3 (08:20→21:27)
[2019-08-10] MEDS: LamoTRIgine 25 MG TABLET PO SCH ×2 (08:20→16:58)
[2019-08-10] MEDS: TRIHEXYPHENIDYL HCL 2 MG TABLET PO SCH ×2 (08:20→16:58)
[2019-08-10] MEDS: OXCARBAZEPINE 150 MG TABLET PO SCH ×4 (08:20→21:26)
[2019-08-10] MEDS: MAGNESIUM HYDROXIDE 30 ML UDC PO PRN (08:21)
[2019-08-10] MEDS: AMLODIPINE BESYLATE 10 MG TABLET PO SCH (08:21)
[2019-08-10] MEDS: VITAMIN B COMP W-C 1 TAB TABLET PO SCH (08:21)
[2019-08-10] MEDS: ATORVASTATIN 10 MG TABLET PO SCH (08:21)
[2019-08-10] MEDS: DOCUSATE SODIUM 100 MG CAPSULE PO SCH ×2 (08:21→16:58)
[2019-08-10] MEDS: MENTHOL/CETYLPYRD (CEPACOL) 1 LOZ LOZENGE PO PRN ×3 (10:08→19:57)
[2019-08-10] MEDS: ACETAMINOPHEN 325 MG TABLET PO PRN (11:25)
[2019-08-10] MEDS: ALPRAZOLAM 0.25 MG TABLET PO PRN (12:05)
[2019-08-10 16:00] VITALS: BP 130/77
[2019-08-10 20:19] VITALS: BP 143/90
[2019-08-10] MEDS: SENNOSIDES 8.6 MG TABLET PO SCH (21:26)
[2019-08-10] MEDS: TEMAZEPAM 7.5 MG CAPSULE PO PRN (21:27)
--- NOTE | 2019-08-10 21:57 | NUR ---
GPS NURSE PRN RESTORIL 7.5 MG GIVEN PER PT REQUEST FOR SLEEP, WILL CONT. TO MONITOR
[2019-08-11] MEDS: GUAIFENESIN 300 MG/15 ML UDC PO PRN ×3 (03:39→23:07)
[2019-08-11] MEDS: MENTHOL/CETYLPYRD (CEPACOL) 1 LOZ LOZENGE PO PRN ×3 (03:40→16:08)
[2019-08-11] MEDS: ACETAMINOPHEN ES 500 MG TABLET PO PRN (04:20)
[2019-08-11] MEDS: ALPRAZOLAM 0.25 MG TABLET PO PRN ×2 (05:29→23:07)
[2019-08-11 08:00] VITALS: BP 135/94
[2019-08-11] MEDS: ATORVASTATIN 10 MG TABLET PO SCH (08:46)
[2019-08-11] MEDS: OXCARBAZEPINE 150 MG TABLET PO SCH ×4 (08:46→21:55)
[2019-08-11] MEDS: ARIPIPRAZOLE 5 MG TABLET PO SCH ×3 (08:46→21:56)
[2019-08-11] MEDS: AMLODIPINE BESYLATE 10 MG TABLET PO SCH (08:46)
[2019-08-11] MEDS: LamoTRIgine 25 MG TABLET PO SCH ×2 (08:46→16:08)
[2019-08-11] MEDS: DOCUSATE SODIUM 100 MG CAPSULE PO SCH ×2 (08:46→16:09)
[2019-08-11] MEDS: TRIHEXYPHENIDYL HCL 2 MG TABLET PO SCH ×2 (08:46→16:14)
[2019-08-11] MEDS: VITAMIN B COMP W-C 1 TAB TABLET PO SCH (08:46)
[2019-08-11] MEDS: OMEPRAZOLE 20 MG CAPSULE.DR PO SCH (08:47)
[2019-08-11] MEDS: ONDANSETRON 4 MG TAB.RAPDIS SL PRN (08:52)
--- NOTE | 2019-08-11 09:01 | NUR ---
PRN ZOFRAN GIVEN FOR NAUSEA
[2019-08-11] MEDS ORDERED: MAGNESIUM CITRATE 296 ML BOTTLE PO ONE (10:00)
--- NOTE | 2019-08-11 10:27 | NUR ---
WENT INTO PATIENT'S ROOM TO ADMINISTER MEDICATIONS. PATIENT STATED THAT SHE CAN'T TAKE ALL THAT BECAUSE SHES GOING TO GET DIZZY AND THEN STATED "SEE, IM ALREADY GETTING DIZZY BEFORE EVEN TAKING THE MEDICATION". DURING MY OBSERVATIONS, PATIENT IS AMBULATORY WITH STEADY GAIT.
--- NOTE | 2019-08-11 10:57 | NUR ---
PATIENT IS PORTRAYING MANIPULATIVE BEHAVIOR. PATIENT HAS BEEN STATING THAT SHE IS GOING TO "WRITE THIS NURSE UP" QUITE FREQUENTLY. ALSO, I WAS EDUCATING PATIENT ON IF SHE FEELS DIZZY, SHE NEEDS TO SIT DOWN OR USE A WALKER. PATIENT THEN STATED THAT SHE DIDNT CARE IF SHE USED A WALKER OR NOT BECAUSE IF SHE FELL THE NURSES WOULD BE BLAMED FOR IT NOT HER.
--- NOTE | 2019-08-11 11:00 | NUR ---
LOZENGE AND ROBITUSSIN GIVEN FOR COUGH/ SORE THROAT
--- NOTE | 2019-08-11 11:01 | NUR ---
MAGNESIUM CITRATE GIVEN FOR CONSTIPATION
--- NOTE | 2019-08-11 12:14 | NUR ---
PATIENT REFUSED 1300 MED. AWARE
--- NOTE | 2019-08-11 15:02 | NUR ---
PATIENT IS VERY INTRUSIVE, DEMANDING, ATTENTION SEEKING AND PORTRAYING MANIPULATIVE BEHAVIOR. PSYCHOTIC SYMPTOMS NOTED. Addendum: 08/11/19 at 1820 by MAYO CORADO RN PATIENT CONTINUES TO BE ATTENTION SEEKING.
[2019-08-11 16:00] VITALS: BP 144/59
[2019-08-11 20:11] VITALS: BP 153/77
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
[2019-08-11] MEDS: SENNOSIDES 8.6 MG TABLET PO SCH (21:56)
[2019-08-12] MEDS: ACETAMINOPHEN ES 500 MG TABLET PO PRN (06:04)
[2019-08-12] MEDS: GUAIFENESIN 300 MG/15 ML UDC PO PRN ×3 (06:04→20:13)
--- NOTE | 2019-08-12 06:22 | NUR ---
PT COMPLAINED OF HEADACHE, TYLENOL 500MG 2 TABS GIVEN PO ORDERED AT 0604. WILL CONTINUE TO MONITOR.
[2019-08-12 08:00] VITALS: BP 155/87
[2019-08-12] MEDS: ONDANSETRON 4 MG TAB.RAPDIS SL PRN (08:02)
[2019-08-12] MEDS: OMEPRAZOLE 20 MG CAPSULE.DR PO SCH (08:10)
[2019-08-12] MEDS: LamoTRIgine 25 MG TABLET PO SCH ×2 (08:12→16:53)
[2019-08-12] MEDS: DOCUSATE SODIUM 100 MG CAPSULE PO SCH ×2 (08:13→16:52)
[2019-08-12] MEDS: OXCARBAZEPINE 150 MG TABLET PO SCH ×4 (08:13→21:23)
[2019-08-12] MEDS: VITAMIN B COMP W-C 1 TAB TABLET PO SCH (08:16)
[2019-08-12] MEDS: ATORVASTATIN 10 MG TABLET PO SCH (08:16)
[2019-08-12] MEDS: ARIPIPRAZOLE 5 MG TABLET PO SCH ×3 (08:18→21:57)
[2019-08-12] MEDS: TRIHEXYPHENIDYL HCL 2 MG TABLET PO SCH ×2 (08:19→16:53)
[2019-08-12] MEDS: MENTHOL/CETYLPYRD (CEPACOL) 1 LOZ LOZENGE PO PRN ×2 (08:22→13:00)
[2019-08-12] MEDS: AMLODIPINE BESYLATE 10 MG TABLET PO SCH (08:28)
[2019-08-12] MEDS: MAG HYDROX/AL HYDROX/SIMETH 30 ML UDC PO PRN (11:07)
[2019-08-12] MEDS: ALPRAZOLAM 0.25 MG TABLET PO PRN ×2 (13:56→22:27)
--- NOTE | 2019-08-12 13:57 | NUR ---
RN NOTE: PT C/O ANXIETY. MED WITH XANAX 0.25 MG PO
--- NOTE | 2019-08-12 14:00 | NUR ---
FAMILY CONTACT: NEETU contacted pts aunt/Probate Conservator Carol Hicks [phone] and informed her pt will be discharged tomorrow 08/13/19, aunt stated that pt is still not at baseline and stated pt could not return to her home until she was more stable. NEETU informed her that SW will be referring pt to a SNF and aunt agreed.
--- NOTE | 2019-08-12 14:22 | NUR ---
SNF REFERRAL: NEETU faxed SNF referral to Karina, music coordinator at [facility] Address: [address], [place] [address] for review.
[2019-08-12] MEDS: diphenhydrAMINE HCL 25 MG CAPSULE PO SCH ×2 (14:35→16:52)
--- NOTE | 2019-08-12 14:48 | NUR ---
FAMILY CONTACT: SW received a call from pts aunt/Probate Conservator Carol Hicks [phone] expressing her concern with pts progress in the hospital. Aunt stated that pt is worse than when she came in and stated that the MD has not called her to discuss pts treatment. Aunt states that she does not agree with pts discharge and wishes for MD to call her. SW informed MD Dr. Sadler on this present day.
--- NOTE | 2019-08-12 15:59 | NUR ---
SNF EVALUATION: SONIA Cardona from [facility] Address: [address], [place] [address] came on this present day to assess pt.
[2019-08-12 16:00] VITALS: BP 160/98
[2019-08-12 20:41] VITALS: BP 140/75
[2019-08-12] MEDS: SENNOSIDES 8.6 MG TABLET PO SCH (21:57)
[2019-08-13] MEDS: MENTHOL/CETYLPYRD (CEPACOL) 1 LOZ LOZENGE PO PRN ×3 (02:11→09:52)
[2019-08-13] MEDS: GUAIFENESIN 300 MG/15 ML UDC PO PRN ×2 (02:21→09:52)
--- NOTE | 2019-08-13 02:22 | NUR ---
AT 0205 PT WOKE UP COUGHING. ROBITUSSIN 1 CUP/15ML, AND CEPACOL GIVEN. WILL CONTINUE TO MONITOR.
[2019-08-13] MEDS: ACETAMINOPHEN ES 500 MG TABLET PO PRN (03:43)
[2019-08-13] MEDS: ALPRAZOLAM 0.25 MG TABLET PO PRN (07:40)
[2019-08-13 08:00] VITALS: BP 150/90
[2019-08-13] MEDS: OMEPRAZOLE 20 MG CAPSULE.DR PO SCH (08:20)
--- NOTE | 2019-08-13 08:45 | NUR ---
SNF REFERRAL: SW received a call from SONIA Cardona from [facility] [address] [facility] [place] [address] stating pt has been accepted to the facility.
[2019-08-13] MEDS: DOCUSATE SODIUM 100 MG CAPSULE PO SCH (09:00)
[2019-08-13] MEDS: ARIPIPRAZOLE 5 MG TABLET PO SCH (09:00)
[2019-08-13] MEDS: OXCARBAZEPINE 150 MG TABLET PO SCH ×2 (09:02→12:58)
[2019-08-13] MEDS: TRIHEXYPHENIDYL HCL 2 MG TABLET PO SCH (09:02)
[2019-08-13] MEDS: ATORVASTATIN 10 MG TABLET PO SCH (09:03)
[2019-08-13] MEDS: LamoTRIgine 25 MG TABLET PO SCH (09:04)
[2019-08-13] MEDS: VITAMIN B COMP W-C 1 TAB TABLET PO SCH (09:04)
[2019-08-13 09:05] VITALS: BP 150/90
[2019-08-13] MEDS: AMLODIPINE BESYLATE 10 MG TABLET PO SCH (09:05)
--- NOTE | 2019-08-13 09:06 | NUR ---
FAMILY CONTACT: NEETU spoke with pts aunt/Probate Conservator Carol Hicks [phone] and informed her pt will be discharged on this present day. Aunt stated called her yesterday and agrees with pts discharge to [facility] on this present day.
[2019-08-13] MEDS: diphenhydrAMINE HCL 25 MG CAPSULE PO SCH (09:15)
--- NOTE | 2019-08-13 10:49 | NUR ---
DISCHARGE NOTE: Pt will be discharged at time 1:30pm via [facility] to [facility] Address: [address] [place] [address] . Pts aunt/Probate Conservator Carol Hicks [phone] has been notified and agrees with discharge plan. Pts mood is euthymic with congruent affect. Pt denied visual/auditory hallucinations and denied suicidal/homicidal ideation. Pt will be under the care of Psychiatrist: Psychiatrist: Dr. Sadler Address: [address] [place] [address] Phone: and Train Driver: Dr White Address: [address] [address] . The multidisciplinary exit care form was done, printed, signed, and given to the patient.
--- NOTE | 2019-08-13 14:00 | NUR ---
RN NOTE: REPORT GIVEN TO SLICK SCOTT AT [facility] [phone]. PROBATE CONSERVATOR LUCAS CLARKE AWAY OF TRANSFER.
--- NOTE | 2019-08-13 15:45 | NUR ---
RN NOTE: 59 YEAR OLD FEMALE DISCHARGED TO [facility] IN STABLE CONDITION. PT COMPLIANT WITH MEDICATIONS, COOPERATIVE WITH TREATMENT PLANS. PATIEN DENIES SI/HI AND INSTRUCTED TO GOT TO THE CLOSEST ER IF DEVELOPING SI/HI. BEHAVIOR IMPORVED, PSYCHIATRIC TREATMENT PLANS MET, MEDICAL TREATMENT PLANS DEFERRED FOR CONTINUAL MONITORING. EDUCATED PATIENT ABOUT AFTER CARE PLAN AND COPY PROVIDED. RETURNED PERSONAL BELONGINGS TO PATIENT. MEDICAIONS RECONCILED WITH DR. SUAREZ AND DR. HAIDER. REPORT GIVEN TO SLICK SCOTT AT [facility]. PATIENT SIGNED DISCHARGE PAPERWORK. SKIN INTACT UPON ADMIT AND DISCHARGE. PATIENT LEFT THE UNIT AT 1545 VIA AMBULANCE WITH EMS. VSSS: 122/73, 97.8, 18, 91, 97% ROOM AIR.
== END 2019-08-13 15:45 | DRG 885 ==
LOC: ER 15:49 → GPS 20:06
PROVIDERS: ADMIT Psychiatry & Neurology Psychiatry; ATTEND Internal Medicine
DX: F31.2 Bipolar disorder, current episode manic severe with psychotic features (principal); I10 Essential (primary) hypertension; E78.00 Pure hypercholesterolemia, unspecified; K59.00 Constipation, unspecified; F41.9 Anxiety disorder, unspecified; Z86.73 Personal history of transient ischemic attack (TIA), and cerebral infarction without residual deficits; F02.80 Dementia in other diseases classified elsewhere, unspecified severity, without behavioral disturbance, psychotic disturbance, mood disturbance, and anxiety; Z73.6 Limitation of activities due to disability; G20 Parkinson's disease
CPT/HCPCS: 36415; 80048-TC; 80076-TC; 80305; 81000-TC; 85025-TC; 87081-TC; 97116-TC; 97530-TC; G0480; Q0162; Q0163

== ENCOUNTER 2023-05-08 18:43 | Inpatient (IN) | payer MEDICARE, OTHER ==
[~2023-05-08] VITALS: Ht 165.1 cm; Wt 72.6 kg
[~2023-05-08 18:43] MED LIST changes: -OMEP40CA13 PO; +OMEP40CA21 PO
[2023-05-08 20:18] LABS: BASOPHILS % (AUTO) 0.7 % (0.0-2.0); EOSINOPHILS # (AUTO) 0.1 K/uL (0.0-0.7); HEMATOCRIT 39 % (33-45); LYMPHOCYTES % (AUTO) 27.7 % (20.0-44.0); MEAN CORPUSCULAR HEMOGLOBIN 30 PG (26.0-33.0); MEAN CORPUSCULAR HGB CONC 34 g/dl (31.0-36.0); MEAN CORPUSCULAR VOLUME 89 fL (82-100); MONOCYTES # (AUTO) 0.5 K/uL (0.1-1.30); MONOCYTES % (AUTO) 6.9 % (2.0-12.0); NEUTROPHILS # (AUTO) 4.5 K/uL (1.8-8.9); NEUTROPHILS % (AUTO) 62.7 % (43.0-81.0); PLATELET COUNT (AUTO) 129 K/uL (150-450); RED BLOOD CELL COUNT(AUTO) 4.38 MIL/uL (4.0-5.2); RED CELL DISTRIBUTION WIDTH 12.9 % (11.5-15.0); WHITE BLOOD COUNT (AUTO) 7.1 K/uL (4.3-11.0)
[2023-05-08] MEDS ORDERED: ACETAMINOPHEN 325 MG TABLET ONE (20:22)
[2023-05-08 20:23] LABS: APPEARANCE,URINE SLIGHTLY CLOUDY (CLEAR); BILIRUBIN,URINE NEGATIVE (NEGATIVE); BLOOD, URINE TRACE-INTA Ery/uL (NEGATIVE); COLOR,URINE YELLOW (YELLOW); KETONES,URINE NEGATIVE (NEGATIVE); LEUKOCYTE ESTERASE ,URINE 3+ (NEGATIVE); NITRITE, URINE POSITIVE (NEGATIVE); PROTEIN,URINE NEGATIVE (NEGATIVE); UGLUCOSE NEGATIVE (NEGATIVE); UROBILINOGEN,URINE 0.2 EU/dL (0.2)
[2023-05-08] MEDS ORDERED: ACETAMINOPHEN 325 MG TABLET PO ONE (20:30)
[2023-05-08 20:38] LABS: ADD URINE CULTURE YES; BACTERIA,URINE 2+ /HPF (None Seen); SQUAMOUS EPITHELIAL CELL,UR 21-50 /HPF (None Seen); WBC,URINE 51-80 /HPF (0-3)
[2023-05-08 20:41] LABS: CALCIUM, SERUM 9.5 mg/dL (8.5-10.1); CARBON DIOXIDE 30 mmol/L (21-32); CHLORIDE 105 mmol/L (98-107); CREATININE 1.4 mg/dL (0.6-1.3); GLUCOSE 106 mg/dL (74-106); POTASSIUM 3.7 mmol/L (3.5-5.1); SODIUM SERUM 142 mmol/L (136-145); UREA NITROGEN, BLOOD 19 mg/dL (7-18)
[2023-05-08 20:50] LABS: AMPHETAMINE, URINE NEGATIVE (NEGATIVE); BARBITURATE, URINE NEGATIVE (NEGATIVE); BENZODIAZEPINE, URINE NEGATIVE (NEGATIVE); CANNABINOID, URINE NEGATIVE (NEGATIVE); COCCAINE, URINE NEGATIVE (NEGATIVE); OPIATE, URINE NEGATIVE (NEGATIVE); PHENCYCLIDINE SCREEN,URINE NEGATIVE (NEGATIVE)
[2023-05-08 20:51] LABS: ALANINE AMINOTRANSFERASE 28 U/L (12-78); ALBUMIN 3.9 g/dL (3.4-5.0); ALCOHOL, BLOOD < 3 mg/dL (0-10); ALKALINE PHOSPHATASE 132 U/L (46-116); ASPARTATE AMINOTRANSFERASE 13 U/L (15-37); BILIRUBIN,DIRECT 0.2 mg/dL (0.0-0.2); BILIRUBIN,TOTAL 0.6 mg/dL (0.2-1.0); SALICYLATE < 0.2 mg/dL (2.8-20.0); TOTAL PROTEIN, SERUM 7.4 g/dL (6.4-8.2)
[2023-05-08 20:52] LABS: ACETAMINOPHEN <10 ug/ml (10-30)
[2023-05-08] MEDS ORDERED: CEFTRIAXONE 1 G in IV D5W 50 ML IV ONE (22:00)
[2023-05-08] MEDS ORDERED: CEFTRIAXONE 1GM BAG (ER ONLY) 50 ML IV ONE (22:09)
[2023-05-09] MEDS ORDERED: LORAZEPAM 0.5 MG TABLET ONE (02:13)
[2023-05-09] MEDS ORDERED: LORAZEPAM 1 MG TABLET PO ONE (02:30)
[2023-05-09 03:30] VITALS: BP 148/85; TEMP 98.2
[2023-05-09] MEDS ORDERED: MAGNESIUM HYDROXIDE 30 ML UDC PO PRN ×2 (03:30→12:00)
[2023-05-09] MEDS ORDERED: ACETAMINOPHEN 325 MG TABLET PO PRN ×2 (03:30→12:00)
[2023-05-09] MEDS ORDERED: BLOOD SUGAR DIAGNOSTIC 1 EACH STRIP IN ONE (03:30)
[2023-05-09] MEDS ORDERED: MAG HYDROX/AL HYDROX/SIMETH 30 ML UDC PO PRN (03:30)
[2023-05-09] MEDS ORDERED: MAGN400O6 PO (07:44)
[2023-05-09] MEDS ORDERED: ARIP15TA3 PO (07:44)
[2023-05-09] MEDS ORDERED: ATOR20TA PO (07:44)
[2023-05-09] MEDS ORDERED: MAG-151 PO (07:44)
[2023-05-09] MEDS ORDERED: ASCO-340 PO (07:44)
[2023-05-09] MEDS ORDERED: DOCU250C14 PO (07:44)
[2023-05-09] MEDS ORDERED: BACL10TA PO (07:44)
[2023-05-09] MEDS ORDERED: HYDR-500 PO (07:44)
[2023-05-09] MEDS ORDERED: CHOL100040 PO (07:44)
[2023-05-09] MEDS ORDERED: FOLI1TAB26 PO (07:44)
[2023-05-09] MEDS ORDERED: HYDR28.32 TP (07:44)
[2023-05-09 08:00] VITALS: BP 132/90; TEMP 97.7; O2SAT 96
[2023-05-09] MEDS ORDERED: ATORVASTATIN 10 MG TABLET PO SCH (09:00)
[2023-05-09] MEDS ORDERED: DOCUSATE SODIUM 100 MG CAPSULE PO SCH (09:00)
[2023-05-09] MEDS: AMLODIPINE BESYLATE 10 MG TABLET PO SCH (09:20)
[2023-05-09] MEDS ORDERED: Medication Not On Formulary EA (Mag Hydrox/Aluminum Hyd/Simeth (Geri-Lanta Liquid) 30 ML PO PRN (12:00)
[2023-05-09] MEDS: OXCARBAZEPINE 150 MG TABLET PO SCH ×2 (12:40→16:35)
[2023-05-09] MEDS: ARIPIPRAZOLE 5 MG TABLET PO SCH ×2 (13:03→16:35)
[2023-05-09 16:00] VITALS: BP 122/81; TEMP 98.7; O2SAT 98
[2023-05-09 16:05] VITALS: BP 122/81; TEMP 98.7; O2SAT 96
[2023-05-09] MEDS: BACLOFEN (10 MG) 10 MG TABLET PO SCH (16:35)
[2023-05-09] MEDS: NITROFURANTOIN/MONOHYDRATE MACROCRYSTALS 100 MG CAPSULE PO SCH (20:51)
[2023-05-09] MEDS: TEMAZEPAM 7.5 MG CAPSULE PO PRN (20:52)
[2023-05-09 20:57] VITALS: BP 147/87; TEMP 97.3; O2SAT 99
[2023-05-09] MEDS: ATORVASTATIN 10 MG TABLET PO SCH (21:08)
[2023-05-09] MEDS: POLYETHYLENE GLYCOL 3350 17 GM POWD.PACK PO SCH (21:08)
[2023-05-09] MEDS ORDERED: Medication Not On Formulary EA (Melatonin 6 MG) PO SCH (22:00)
[2023-05-10 07:39] LABS: BASOPHILS % (AUTO) 0.4 % (0.0-2.0); EOSINOPHILS # (AUTO) 0.2 K/uL (0.0-0.7); EOSINOPHILS % (AUTO) 2.5 % (0.0-6.0); HEMATOCRIT 44 % (33-45); HEMOGLOBIN 14.5 g/dL (11.5-14.8); LYMPHOCYTES # (AUTO) 1.9 K/uL (0.8-4.8); MEAN CORPUSCULAR HEMOGLOBIN 30 PG (26.0-33.0); MEAN CORPUSCULAR HGB CONC 33 g/dl (31.0-36.0); MEAN CORPUSCULAR VOLUME 89 fL (82-100); MONOCYTES # (AUTO) 0.5 K/uL (0.1-1.30); MONOCYTES % (AUTO) 7.2 % (2.0-12.0); NEUTROPHILS # (AUTO) 3.9 K/uL (1.8-8.9); NEUTROPHILS % (AUTO) 60.9 % (43.0-81.0); PLATELET COUNT (AUTO) 122 K/uL (150-450); RED BLOOD CELL COUNT(AUTO) 4.93 MIL/uL (4.0-5.2); RED CELL DISTRIBUTION WIDTH 13.2 % (11.5-15.0); WHITE BLOOD COUNT (AUTO) 6.5 K/uL (4.3-11.0)
[2023-05-10 07:49] LABS: ALBUMIN 4.1 g/dL (3.4-5.0); BILIRUBIN,TOTAL 0.8 mg/dL (0.2-1.0); CALCIUM, SERUM 9.6 mg/dL (8.5-10.1); CREATININE 1.2 mg/dL (0.6-1.3); MAGNESIUM 2.6 mg/dL (1.8-2.4); TOTAL PROTEIN, SERUM 7.8 g/dL (6.4-8.2)
[2023-05-10 08:00] VITALS: BP 137/90; TEMP 97.7; O2SAT 97
[2023-05-10] MEDS: PANTOPRAZOLE 40 MG TABLET.DR PO SCH (08:30)
[2023-05-10] MEDS: ARIPIPRAZOLE 5 MG TABLET PO SCH ×3 (08:30→16:43)
[2023-05-10] MEDS: BACLOFEN (10 MG) 10 MG TABLET PO SCH ×2 (08:30→16:43)
[2023-05-10] MEDS: OXCARBAZEPINE 150 MG TABLET PO SCH ×2 (08:30→16:43)
[2023-05-10] MEDS: AMLODIPINE BESYLATE 10 MG TABLET PO SCH (08:30)
[2023-05-10] MEDS: NITROFURANTOIN/MONOHYDRATE MACROCRYSTALS 100 MG CAPSULE PO SCH ×2 (08:31→20:48)
[2023-05-10] MEDS: MULTIVITAMIN/LUTEIN/MINERALS 1 TAB PO SCH (08:46)
[2023-05-10] MEDS: HYDROCORTISONE 1% CREAM 28.35 GM TUBE TP SCH (08:46)
[2023-05-10] MEDS: ASCORBIC ACID 500 MG TABLET PO SCH (08:46)
[2023-05-10] MEDS: CALCIUM CARB 600MG /VIT D 1 EACH TABLET PO SCH (08:46)
[2023-05-10] MEDS: CYANOCOBALAMIN 500 MCG TABLET PO SCH (08:47)
[2023-05-10] MEDS: MULTIVITAMINS,THERAGRAN 1 UDTAB TABLET PO SCH (08:47)
[2023-05-10] MEDS: CHOLECALCIFEROL 1,000 UNIT TABLET (VIT D3) PO SCH (08:47)
[2023-05-10] MEDS: DOCUSATE SODIUM 250 MG CAPSULE PO SCH (08:47)
[2023-05-10] MEDS: IV NS 0.9% 50 ML IV SCH ×2 (10:00→11:00)
[2023-05-10] MEDS ORDERED: IOHEXOL-300 100 ML VIAL IV ONE (11:18)
[2023-05-10] MEDS ORDERED: IV NS 0.9% 250 ML IV ONE (11:19)
[2023-05-10 16:00] VITALS: BP 114/82; TEMP 98.7; O2SAT 98
[2023-05-10 20:17] VITALS: BP 142/78; TEMP 98.2; O2SAT 98
[2023-05-10] MEDS: TEMAZEPAM 7.5 MG CAPSULE PO PRN (20:49)
[2023-05-10] MEDS: ATORVASTATIN 10 MG TABLET PO SCH (21:01)
[2023-05-10] MEDS: POLYETHYLENE GLYCOL 3350 17 GM POWD.PACK PO SCH (21:03)
[2023-05-11 07:29] LABS: BASOPHILS % (AUTO) 0.4 % (0.0-2.0); EOSINOPHILS # (AUTO) 0.2 K/uL (0.0-0.7); EOSINOPHILS % (AUTO) 2.7 % (0.0-6.0); HEMATOCRIT 38 % (33-45); HEMOGLOBIN 12.9 g/dL (11.5-14.8); LYMPHOCYTES # (AUTO) 1.7 K/uL (0.8-4.8); LYMPHOCYTES % (AUTO) 26.4 % (20.0-44.0); MEAN CORPUSCULAR HEMOGLOBIN 30 PG (26.0-33.0); MEAN CORPUSCULAR HGB CONC 34 g/dl (31.0-36.0); MEAN CORPUSCULAR VOLUME 89 fL (82-100); MONOCYTES # (AUTO) 0.5 K/uL (0.1-1.30); MONOCYTES % (AUTO) 8.4 % (2.0-12.0); NEUTROPHILS % (AUTO) 62.1 % (43.0-81.0); PLATELET COUNT (AUTO) 118 K/uL (150-450); RED CELL DISTRIBUTION WIDTH 12.9 % (11.5-15.0); WHITE BLOOD COUNT (AUTO) 6.4 K/uL (4.3-11.0)
[2023-05-11] MEDS: PANTOPRAZOLE 40 MG TABLET.DR PO SCH (07:33)
[2023-05-11 07:51] LABS: ALBUMIN 3.3 g/dL (3.4-5.0); BILIRUBIN,TOTAL 0.4 mg/dL (0.2-1.0); CALCIUM, SERUM 9.1 mg/dL (8.5-10.1); CREATININE 1.3 mg/dL (0.6-1.3); MAGNESIUM 2.2 mg/dL (1.8-2.4); PHOSPHORUS 4.1 mg/dL (2.5-4.9); POTASSIUM 4.3 mmol/L (3.5-5.1); TOTAL PROTEIN, SERUM 6.6 g/dL (6.4-8.2)
[2023-05-11 08:00] VITALS: BP 117/99; TEMP 98; O2SAT 96
[2023-05-11] MEDS: CYANOCOBALAMIN 500 MCG TABLET PO SCH (08:17)
[2023-05-11] MEDS: BACLOFEN (10 MG) 10 MG TABLET PO SCH ×2 (08:17→17:03)
[2023-05-11] MEDS: MULTIVITAMINS,THERAGRAN 1 UDTAB TABLET PO SCH (08:17)
[2023-05-11] MEDS: MULTIVITAMIN/LUTEIN/MINERALS 1 TAB PO SCH (08:17)
[2023-05-11] MEDS: AMLODIPINE BESYLATE 10 MG TABLET PO SCH (08:17)
[2023-05-11] MEDS: ARIPIPRAZOLE 5 MG TABLET PO SCH ×3 (08:17→17:03)
[2023-05-11] MEDS: DOCUSATE SODIUM 250 MG CAPSULE PO SCH (08:18)
[2023-05-11] MEDS: OXCARBAZEPINE 150 MG TABLET PO SCH ×2 (08:18→17:03)
[2023-05-11] MEDS: ASCORBIC ACID 500 MG TABLET PO SCH (08:18)
[2023-05-11] MEDS: CHOLECALCIFEROL 1,000 UNIT TABLET (VIT D3) PO SCH (08:18)
[2023-05-11] MEDS: CALCIUM CARB 600MG /VIT D 1 EACH TABLET PO SCH (08:18)
[2023-05-11] MEDS: NITROFURANTOIN/MONOHYDRATE MACROCRYSTALS 100 MG CAPSULE PO SCH ×2 (08:18→21:24)
[2023-05-11] MEDS: HYDROCORTISONE 1% CREAM 28.35 GM TUBE TP SCH (09:46)
[2023-05-11 14:03] LABS: CREATININE, URINE 28.3 MG/DL (30.0-125.0); URINE TOTAL PROTEIN 4.2 mg/dL (0-11.9)
[2023-05-11 14:08] LABS: APPEARANCE,URINE CLEAR (CLEAR); BILIRUBIN,URINE NEGATIVE (NEGATIVE); BLOOD, URINE NEGATIVE Ery/uL (NEGATIVE); COLOR,URINE YELLOW (YELLOW); KETONES,URINE NEGATIVE (NEGATIVE); LEUKOCYTE ESTERASE ,URINE NEGATIVE (NEGATIVE); NITRITE, URINE NEGATIVE (NEGATIVE); PROTEIN,URINE NEGATIVE (NEGATIVE); UGLUCOSE NEGATIVE (NEGATIVE); UROBILINOGEN,URINE 0.2 EU/dL (0.2)
[2023-05-11 15:00] LABS: EOSINOPHIL,URINE None Seen
[2023-05-11 16:00] VITALS: BP 118/78; TEMP 97.8; O2SAT 99
[2023-05-11 20:00] VITALS: BP 125/80; TEMP 98.1; O2SAT 98
[2023-05-11] MEDS: TEMAZEPAM 7.5 MG CAPSULE PO PRN (21:24)
[2023-05-11] MEDS: ATORVASTATIN 10 MG TABLET PO SCH (21:24)
[2023-05-11] MEDS: POLYETHYLENE GLYCOL 3350 17 GM POWD.PACK PO SCH ×2 (21:24→21:49)
[2023-05-12 08:00] VITALS: BP 122/94; TEMP 97.9; O2SAT 98
[2023-05-12] MEDS: HYDROCORTISONE 1% CREAM 28.35 GM TUBE TP SCH (08:55)
[2023-05-12] MEDS: DOCUSATE SODIUM 250 MG CAPSULE PO SCH (09:00)
[2023-05-12] MEDS: MULTIVITAMINS,THERAGRAN 1 UDTAB TABLET PO SCH (09:15)
[2023-05-12] MEDS: NITROFURANTOIN/MONOHYDRATE MACROCRYSTALS 100 MG CAPSULE PO SCH ×2 (09:15→21:15)
[2023-05-12] MEDS: BACLOFEN (10 MG) 10 MG TABLET PO SCH ×2 (09:15→16:51)
[2023-05-12] MEDS: MULTIVITAMIN/LUTEIN/MINERALS 1 TAB PO SCH (09:15)
[2023-05-12] MEDS: CALCIUM CARB 600MG /VIT D 1 EACH TABLET PO SCH (09:15)
[2023-05-12] MEDS: PANTOPRAZOLE 40 MG TABLET.DR PO SCH (09:15)
[2023-05-12] MEDS: ARIPIPRAZOLE 5 MG TABLET PO SCH ×3 (09:15→16:51)
[2023-05-12] MEDS: CYANOCOBALAMIN 500 MCG TABLET PO SCH (09:15)
[2023-05-12] MEDS: CHOLECALCIFEROL 1,000 UNIT TABLET (VIT D3) PO SCH (09:15)
[2023-05-12] MEDS: OXCARBAZEPINE 150 MG TABLET PO SCH ×2 (09:16→16:51)
[2023-05-12] MEDS: ASCORBIC ACID 500 MG TABLET PO SCH (09:16)
[2023-05-12] MEDS: AMLODIPINE BESYLATE 10 MG TABLET PO SCH (09:16)
[2023-05-12 16:00] VITALS: BP 129/82; TEMP 97.6; O2SAT 98
[2023-05-12 20:00] VITALS: BP 137/82; TEMP 98.4; O2SAT 96
[2023-05-12] MEDS: ATORVASTATIN 10 MG TABLET PO SCH (21:15)
[2023-05-12] MEDS: TEMAZEPAM 7.5 MG CAPSULE PO PRN (21:15)
[2023-05-12] MEDS: POLYETHYLENE GLYCOL 3350 17 GM POWD.PACK PO SCH (21:23)
[2023-05-13 08:00] VITALS: BP 130/83; TEMP 98; O2SAT 100
[2023-05-13] MEDS: CHOLECALCIFEROL 1,000 UNIT TABLET (VIT D3) PO SCH (08:23)
[2023-05-13] MEDS: CALCIUM CARB 600MG /VIT D 1 EACH TABLET PO SCH (08:23)
[2023-05-13] MEDS: AMLODIPINE BESYLATE 10 MG TABLET PO SCH (08:24)
[2023-05-13] MEDS: ARIPIPRAZOLE 5 MG TABLET PO SCH ×3 (08:24→17:42)
[2023-05-13] MEDS: DOCUSATE SODIUM 250 MG CAPSULE PO SCH (08:24)
[2023-05-13] MEDS: ASCORBIC ACID 500 MG TABLET PO SCH (08:25)
[2023-05-13] MEDS: BACLOFEN (10 MG) 10 MG TABLET PO SCH ×2 (08:25→17:42)
[2023-05-13] MEDS: MULTIVITAMIN/LUTEIN/MINERALS 1 TAB PO SCH (08:25)
[2023-05-13] MEDS: PANTOPRAZOLE 40 MG TABLET.DR PO SCH (08:25)
[2023-05-13] MEDS: MULTIVITAMINS,THERAGRAN 1 UDTAB TABLET PO SCH (08:25)
[2023-05-13] MEDS: OXCARBAZEPINE 150 MG TABLET PO SCH ×2 (08:25→17:42)
[2023-05-13] MEDS: CYANOCOBALAMIN 500 MCG TABLET PO SCH (08:25)
[2023-05-13] MEDS: NITROFURANTOIN/MONOHYDRATE MACROCRYSTALS 100 MG CAPSULE PO SCH ×2 (08:26→21:26)
[2023-05-13] MEDS: HYDROCORTISONE 1% CREAM 28.35 GM TUBE TP SCH (08:27)
[2023-05-13 16:00] VITALS: BP 120/78; TEMP 97.1; O2SAT 100
[2023-05-13 21:06] VITALS: BP 109/69; TEMP 97.8; O2SAT 98
[2023-05-13] MEDS: TEMAZEPAM 7.5 MG CAPSULE PO PRN (21:26)
[2023-05-13] MEDS: ATORVASTATIN 10 MG TABLET PO SCH (21:26)
[2023-05-13] MEDS: POLYETHYLENE GLYCOL 3350 17 GM POWD.PACK PO SCH (21:26)
[2023-05-14 08:00] VITALS: BP 144/83; TEMP 98.4; O2SAT 97
[2023-05-14] MEDS: DOCUSATE SODIUM 250 MG CAPSULE PO SCH (08:37)
[2023-05-14] MEDS: PANTOPRAZOLE 40 MG TABLET.DR PO SCH (08:49)
[2023-05-14] MEDS: NITROFURANTOIN/MONOHYDRATE MACROCRYSTALS 100 MG CAPSULE PO SCH ×2 (08:49→20:58)
[2023-05-14] MEDS: MULTIVITAMIN/LUTEIN/MINERALS 1 TAB PO SCH (08:49)
[2023-05-14] MEDS: OXCARBAZEPINE 150 MG TABLET PO SCH ×2 (08:49→17:43)
[2023-05-14] MEDS: CYANOCOBALAMIN 500 MCG TABLET PO SCH (08:50)
[2023-05-14] MEDS: CHOLECALCIFEROL 1,000 UNIT TABLET (VIT D3) PO SCH (08:50)
[2023-05-14] MEDS: CALCIUM CARB 600MG /VIT D 1 EACH TABLET PO SCH (08:50)
[2023-05-14] MEDS: HYDROCORTISONE 1% CREAM 28.35 GM TUBE TP SCH (08:50)
[2023-05-14] MEDS: AMLODIPINE BESYLATE 10 MG TABLET PO SCH (08:50)
[2023-05-14] MEDS: BACLOFEN (10 MG) 10 MG TABLET PO SCH ×2 (08:50→17:43)
[2023-05-14] MEDS: ARIPIPRAZOLE 5 MG TABLET PO SCH ×3 (08:50→17:42)
[2023-05-14] MEDS: ASCORBIC ACID 500 MG TABLET PO SCH (08:50)
[2023-05-14] MEDS: MULTIVITAMINS,THERAGRAN 1 UDTAB TABLET PO SCH (08:51)
[2023-05-14 16:00] VITALS: BP 140/84; TEMP 97.7; O2SAT 98
[2023-05-14 20:25] VITALS: BP 140/81; TEMP 97.9; O2SAT 98
[2023-05-14] MEDS: POLYETHYLENE GLYCOL 3350 17 GM POWD.PACK PO SCH (21:04)
[2023-05-14] MEDS: ATORVASTATIN 10 MG TABLET PO SCH (21:04)
[2023-05-14] MEDS: TEMAZEPAM 7.5 MG CAPSULE PO PRN (21:21)
[2023-05-15] MEDS: PANTOPRAZOLE 40 MG TABLET.DR PO SCH (07:54)
[2023-05-15 08:00] VITALS: BP 119/68; TEMP 97.9; O2SAT 97
[2023-05-15] MEDS: NITROFURANTOIN/MONOHYDRATE MACROCRYSTALS 100 MG CAPSULE PO SCH ×2 (08:14→20:59)
[2023-05-15] MEDS: BACLOFEN (10 MG) 10 MG TABLET PO SCH ×2 (08:14→16:09)
[2023-05-15] MEDS: CYANOCOBALAMIN 500 MCG TABLET PO SCH (08:15)
[2023-05-15] MEDS: DOCUSATE SODIUM 250 MG CAPSULE PO SCH (08:15)
[2023-05-15] MEDS: ASCORBIC ACID 500 MG TABLET PO SCH (08:15)
[2023-05-15] MEDS: ARIPIPRAZOLE 5 MG TABLET PO SCH ×3 (08:15→16:09)
[2023-05-15] MEDS: AMLODIPINE BESYLATE 10 MG TABLET PO SCH (08:15)
[2023-05-15] MEDS: MULTIVITAMIN/LUTEIN/MINERALS 1 TAB PO SCH (08:16)
[2023-05-15] MEDS: OXCARBAZEPINE 150 MG TABLET PO SCH ×3 (08:16→16:09)
[2023-05-15] MEDS: CHOLECALCIFEROL 1,000 UNIT TABLET (VIT D3) PO SCH (08:16)
[2023-05-15] MEDS: CALCIUM CARB 600MG /VIT D 1 EACH TABLET PO SCH (08:16)
[2023-05-15] MEDS: MULTIVITAMINS,THERAGRAN 1 UDTAB TABLET PO SCH (08:16)
[2023-05-15] MEDS: HYDROCORTISONE 1% CREAM 28.35 GM TUBE TP SCH (08:39)
[2023-05-15] MEDS: LORAZEPAM 0.5 MG TABLET PO PRN (12:46)
[2023-05-15 16:00] VITALS: BP 118/77; TEMP 98.1; O2SAT 97
[2023-05-15 20:33] VITALS: BP 110/59; TEMP 97.9; O2SAT 98
[2023-05-15] MEDS: ATORVASTATIN 10 MG TABLET PO SCH (21:01)
[2023-05-15] MEDS: POLYETHYLENE GLYCOL 3350 17 GM POWD.PACK PO SCH (21:01)
[2023-05-15] MEDS: TEMAZEPAM 7.5 MG CAPSULE PO PRN (21:12)
[2023-05-16] MEDS: LORAZEPAM 0.5 MG TABLET PO PRN ×3 (03:42→15:22)
[2023-05-16] MEDS: PANTOPRAZOLE 40 MG TABLET.DR PO SCH (07:55)
[2023-05-16 08:00] VITALS: BP 135/99; TEMP 98.7; O2SAT 99
[2023-05-16] MEDS: ARIPIPRAZOLE 5 MG TABLET PO SCH ×3 (08:53→16:43)
[2023-05-16] MEDS: DOCUSATE SODIUM 250 MG CAPSULE PO SCH (08:53)
[2023-05-16] MEDS: MULTIVITAMIN/LUTEIN/MINERALS 1 TAB PO SCH (08:53)
[2023-05-16] MEDS: BACLOFEN (10 MG) 10 MG TABLET PO SCH ×2 (08:53→16:43)
[2023-05-16] MEDS: ASCORBIC ACID 500 MG TABLET PO SCH (08:53)
[2023-05-16] MEDS: CALCIUM CARB 600MG /VIT D 1 EACH TABLET PO SCH (08:54)
[2023-05-16] MEDS: OXCARBAZEPINE 150 MG TABLET PO SCH ×3 (08:54→16:43)
[2023-05-16] MEDS: NITROFURANTOIN/MONOHYDRATE MACROCRYSTALS 100 MG CAPSULE PO SCH ×2 (08:54→21:03)
[2023-05-16] MEDS: AMLODIPINE BESYLATE 10 MG TABLET PO SCH (08:54)
[2023-05-16] MEDS: CHOLECALCIFEROL 1,000 UNIT TABLET (VIT D3) PO SCH (08:54)
[2023-05-16] MEDS: MULTIVITAMINS,THERAGRAN 1 UDTAB TABLET PO SCH (09:02)
[2023-05-16] MEDS: HYDROCORTISONE 1% CREAM 28.35 GM TUBE TP SCH (09:03)
[2023-05-16] MEDS: CYANOCOBALAMIN 500 MCG TABLET PO SCH (09:03)
[2023-05-16 16:00] VITALS: BP 126/74; TEMP 97.9; O2SAT 97
[2023-05-16 20:34] VITALS: BP 128/73; TEMP 98; O2SAT 98
[2023-05-16] MEDS: ATORVASTATIN 10 MG TABLET PO SCH (21:03)
[2023-05-16] MEDS: POLYETHYLENE GLYCOL 3350 17 GM POWD.PACK PO SCH (21:03)
[2023-05-16] MEDS: TEMAZEPAM 7.5 MG CAPSULE PO PRN (21:22)
[2023-05-17] MEDS: LORAZEPAM 0.5 MG TABLET PO PRN ×3 (05:33→19:58)
[2023-05-17] MEDS: PANTOPRAZOLE 40 MG TABLET.DR PO SCH (07:11)
[2023-05-17 08:00] VITALS: BP 119/78; TEMP 98.1; O2SAT 95
[2023-05-17] MEDS: CALCIUM CARB 600MG /VIT D 1 EACH TABLET PO SCH (08:35)
[2023-05-17] MEDS: OXCARBAZEPINE 150 MG TABLET PO SCH ×3 (08:35→16:26)
[2023-05-17] MEDS: ARIPIPRAZOLE 5 MG TABLET PO SCH ×3 (08:35→16:26)
[2023-05-17] MEDS: MULTIVITAMINS,THERAGRAN 1 UDTAB TABLET PO SCH (08:35)
[2023-05-17] MEDS: MULTIVITAMIN/LUTEIN/MINERALS 1 TAB PO SCH (08:35)
[2023-05-17] MEDS: BACLOFEN (10 MG) 10 MG TABLET PO SCH ×2 (08:35→16:26)
[2023-05-17] MEDS: NITROFURANTOIN/MONOHYDRATE MACROCRYSTALS 100 MG CAPSULE PO SCH (08:35)
[2023-05-17] MEDS: ASCORBIC ACID 500 MG TABLET PO SCH (08:35)
[2023-05-17] MEDS: DOCUSATE SODIUM 250 MG CAPSULE PO SCH (08:35)
[2023-05-17] MEDS: CYANOCOBALAMIN 500 MCG TABLET PO SCH (08:35)
[2023-05-17] MEDS: CHOLECALCIFEROL 1,000 UNIT TABLET (VIT D3) PO SCH (08:35)
[2023-05-17] MEDS: AMLODIPINE BESYLATE 10 MG TABLET PO SCH (08:36)
[2023-05-17] MEDS: HYDROCORTISONE 1% CREAM 28.35 GM TUBE TP SCH (08:36)
[2023-05-17 12:32] LABS: BASOPHILS % (AUTO) 0.5 % (0.0-2.0); EOSINOPHILS # (AUTO) 0.1 K/uL (0.0-0.7); EOSINOPHILS % (AUTO) 1.9 % (0.0-6.0); HEMATOCRIT 41 % (33-45); HEMOGLOBIN 13.8 g/dL (11.5-14.8); LYMPHOCYTES # (AUTO) 1.6 K/uL (0.8-4.8); MEAN CORPUSCULAR HEMOGLOBIN 30 PG (26.0-33.0); MEAN CORPUSCULAR HGB CONC 34 g/dl (31.0-36.0); MEAN CORPUSCULAR VOLUME 89 fL (82-100); MONOCYTES # (AUTO) 0.5 K/uL (0.1-1.30); NEUTROPHILS # (AUTO) 4.4 K/uL (1.8-8.9); NEUTROPHILS % (AUTO) 66.6 % (43.0-81.0); PLATELET COUNT (AUTO) 134 K/uL (150-450); RED CELL DISTRIBUTION WIDTH 13.4 % (11.5-15.0); WHITE BLOOD COUNT (AUTO) 6.6 K/uL (4.3-11.0)
[2023-05-17 13:02] LABS: INR 0.93 (0.91-1.10); PARTIAL THROMBOPLASTIN TIME 25.3 SEC (24.3-34.3); PROTHROMBIN TIME 9.9 SECS (9.2-11.1)
[2023-05-17 16:00] VITALS: BP 133/90; TEMP 98.6; O2SAT 96
[2023-05-17 20:10] VITALS: BP 135/82; TEMP 97.3; O2SAT 98
[2023-05-17] MEDS: TEMAZEPAM 7.5 MG CAPSULE PO PRN (21:10)
[2023-05-17] MEDS: ATORVASTATIN 10 MG TABLET PO SCH (21:10)
[2023-05-17] MEDS: POLYETHYLENE GLYCOL 3350 17 GM POWD.PACK PO SCH (21:11)
[2023-05-18] MEDS: LORAZEPAM 0.5 MG TABLET PO PRN ×2 (03:55→21:37)
[2023-05-18 08:00] VITALS: BP 132/87; TEMP 98.2; O2SAT 95
[2023-05-18] MEDS: CHOLECALCIFEROL 1,000 UNIT TABLET (VIT D3) PO SCH (08:08)
[2023-05-18] MEDS: BACLOFEN (10 MG) 10 MG TABLET PO SCH ×2 (08:08→17:09)
[2023-05-18] MEDS: DOCUSATE SODIUM 250 MG CAPSULE PO SCH (08:08)
[2023-05-18] MEDS: CALCIUM CARB 600MG /VIT D 1 EACH TABLET PO SCH (08:08)
[2023-05-18] MEDS: CYANOCOBALAMIN 500 MCG TABLET PO SCH (08:08)
[2023-05-18] MEDS: ASCORBIC ACID 500 MG TABLET PO SCH (08:08)
[2023-05-18] MEDS: PANTOPRAZOLE 40 MG TABLET.DR PO SCH (08:08)
[2023-05-18] MEDS: AMLODIPINE BESYLATE 10 MG TABLET PO SCH (08:08)
[2023-05-18] MEDS: MULTIVITAMINS,THERAGRAN 1 UDTAB TABLET PO SCH (08:08)
[2023-05-18] MEDS: OXCARBAZEPINE 150 MG TABLET PO SCH ×3 (08:08→17:11)
[2023-05-18] MEDS: ARIPIPRAZOLE 5 MG TABLET PO SCH ×4 (08:09→17:11)
[2023-05-18] MEDS: MULTIVITAMIN/LUTEIN/MINERALS 1 TAB PO SCH (08:09)
[2023-05-18] MEDS: HYDROCORTISONE 1% CREAM 28.35 GM TUBE TP SCH (09:22)
[2023-05-18 16:00] VITALS: BP 120/78; TEMP 98.8; O2SAT 98
[2023-05-18] MEDS: POLYETHYLENE GLYCOL 3350 17 GM POWD.PACK PO SCH (21:18)
[2023-05-18] MEDS: ATORVASTATIN 10 MG TABLET PO SCH (21:18)
[2023-05-18 22:02] VITALS: BP 115/68; TEMP 98; O2SAT 98
[2023-05-18] MEDS: TEMAZEPAM 7.5 MG CAPSULE PO PRN (23:13)
[2023-05-19 08:00] VITALS: BP 128/96; TEMP 98; O2SAT 100
[2023-05-19] MEDS: ARIPIPRAZOLE 5 MG TABLET PO SCH ×3 (08:40→16:07)
[2023-05-19] MEDS: DOCUSATE SODIUM 250 MG CAPSULE PO SCH (08:40)
[2023-05-19] MEDS: BACLOFEN (10 MG) 10 MG TABLET PO SCH ×2 (08:40→16:07)
[2023-05-19] MEDS: CHOLECALCIFEROL 1,000 UNIT TABLET (VIT D3) PO SCH (08:40)
[2023-05-19] MEDS: MULTIVITAMIN/LUTEIN/MINERALS 1 TAB PO SCH (08:40)
[2023-05-19] MEDS: PANTOPRAZOLE 40 MG TABLET.DR PO SCH (08:40)
[2023-05-19] MEDS: CALCIUM CARB 600MG /VIT D 1 EACH TABLET PO SCH (08:40)
[2023-05-19] MEDS: ASCORBIC ACID 500 MG TABLET PO SCH (08:40)
[2023-05-19] MEDS: OXCARBAZEPINE 150 MG TABLET PO SCH ×2 (08:40→12:14)
[2023-05-19] MEDS: AMLODIPINE BESYLATE 10 MG TABLET PO SCH (08:41)
[2023-05-19] MEDS: MULTIVITAMINS,THERAGRAN 1 UDTAB TABLET PO SCH (08:42)
[2023-05-19] MEDS: CYANOCOBALAMIN 500 MCG TABLET PO SCH (08:42)
[2023-05-19] MEDS: HYDROCORTISONE 1% CREAM 28.35 GM TUBE TP SCH (09:56)
[2023-05-19 16:00] VITALS: BP 121/78; TEMP 98; O2SAT 96
[2023-05-19] MEDS: LORAZEPAM 0.5 MG TABLET PO PRN (19:56)
[2023-05-19 20:10] VITALS: BP 113/78; TEMP 97.9; O2SAT 99
[2023-05-19] MEDS: ATORVASTATIN 10 MG TABLET PO SCH (21:09)
[2023-05-19] MEDS: POLYETHYLENE GLYCOL 3350 17 GM POWD.PACK PO SCH (21:09)
[2023-05-19] MEDS: TEMAZEPAM 7.5 MG CAPSULE PO PRN (22:57)
[2023-05-20 07:07] LABS: INR 0.99 (0.91-1.10); PARTIAL THROMBOPLASTIN TIME 25.1 SEC (24.3-34.3); PROTHROMBIN TIME 10.5 SECS (9.2-11.1)
[2023-05-20 08:00] VITALS: BP 147/94; TEMP 98; O2SAT 98
[2023-05-20] MEDS: DOCUSATE SODIUM 250 MG CAPSULE PO SCH (09:02)
[2023-05-20] MEDS: CHOLECALCIFEROL 1,000 UNIT TABLET (VIT D3) PO SCH (09:02)
[2023-05-20] MEDS: BACLOFEN (10 MG) 10 MG TABLET PO SCH ×2 (09:03→17:47)
[2023-05-20] MEDS: CYANOCOBALAMIN 500 MCG TABLET PO SCH (09:03)
[2023-05-20] MEDS: MULTIVITAMIN/LUTEIN/MINERALS 1 TAB PO SCH (09:03)
[2023-05-20] MEDS: ARIPIPRAZOLE 5 MG TABLET PO SCH ×2 (09:03→22:01)
[2023-05-20] MEDS: MULTIVITAMINS,THERAGRAN 1 UDTAB TABLET PO SCH (09:03)
[2023-05-20] MEDS: OXCARBAZEPINE 150 MG TABLET PO SCH ×2 (09:03→17:47)
[2023-05-20] MEDS: ASCORBIC ACID 500 MG TABLET PO SCH (09:03)
[2023-05-20] MEDS: PANTOPRAZOLE 40 MG TABLET.DR PO SCH (09:03)
[2023-05-20] MEDS: CALCIUM CARB 600MG /VIT D 1 EACH TABLET PO SCH (09:03)
[2023-05-20] MEDS: AMLODIPINE BESYLATE 10 MG TABLET PO SCH (09:04)
[2023-05-20] MEDS: HYDROCORTISONE 1% CREAM 28.35 GM TUBE TP SCH (09:04)
[2023-05-20 16:00] VITALS: BP 106/63; TEMP 98; O2SAT 96
[2023-05-20 20:03] VITALS: BP 135/83; TEMP 98; O2SAT 98
[2023-05-20] MEDS: ATORVASTATIN 10 MG TABLET PO SCH (22:00)
[2023-05-20] MEDS: POLYETHYLENE GLYCOL 3350 17 GM POWD.PACK PO SCH (22:01)
[2023-05-20] MEDS: TEMAZEPAM 7.5 MG CAPSULE PO PRN (23:05)
[2023-05-21 08:00] VITALS: BP 132/84; TEMP 98.6; O2SAT 98
[2023-05-21] MEDS: ASCORBIC ACID 500 MG TABLET PO SCH (08:44)
[2023-05-21] MEDS: CALCIUM CARB 600MG /VIT D 1 EACH TABLET PO SCH (08:44)
[2023-05-21] MEDS: MULTIVITAMIN/LUTEIN/MINERALS 1 TAB PO SCH (08:44)
[2023-05-21] MEDS: OXCARBAZEPINE 150 MG TABLET PO SCH ×2 (08:44→17:28)
[2023-05-21] MEDS: CHOLECALCIFEROL 1,000 UNIT TABLET (VIT D3) PO SCH (08:44)
[2023-05-21] MEDS: PANTOPRAZOLE 40 MG TABLET.DR PO SCH (08:44)
[2023-05-21] MEDS: MULTIVITAMINS,THERAGRAN 1 UDTAB TABLET PO SCH (08:44)
[2023-05-21] MEDS: BACLOFEN (10 MG) 10 MG TABLET PO SCH ×2 (08:44→17:28)
[2023-05-21] MEDS: DOCUSATE SODIUM 250 MG CAPSULE PO SCH (08:44)
[2023-05-21] MEDS: AMLODIPINE BESYLATE 10 MG TABLET PO SCH (08:45)
[2023-05-21] MEDS: CYANOCOBALAMIN 500 MCG TABLET PO SCH (08:45)
[2023-05-21] MEDS: HYDROCORTISONE 1% CREAM 28.35 GM TUBE TP SCH (08:45)
[2023-05-21] MEDS: ARIPIPRAZOLE 5 MG TABLET PO SCH ×2 (08:45→21:24)
[2023-05-21 16:00] VITALS: BP 135/86; TEMP 98.1; O2SAT 97
[2023-05-21 20:10] VITALS: BP 131/82; TEMP 98; O2SAT 97
[2023-05-21] MEDS: POLYETHYLENE GLYCOL 3350 17 GM POWD.PACK PO SCH (21:23)
[2023-05-21] MEDS: ATORVASTATIN 10 MG TABLET PO SCH (21:23)
[2023-05-21] MEDS: TEMAZEPAM 7.5 MG CAPSULE PO PRN (21:33)
[2023-05-22 07:00] LABS: BASOPHILS % (AUTO) 0.4 % (0.0-2.0); EOSINOPHILS # (AUTO) 0.2 K/uL (0.0-0.7); EOSINOPHILS % (AUTO) 3.1 % (0.0-6.0); HEMATOCRIT 35 % (33-45); HEMOGLOBIN 11.8 g/dL (11.5-14.8); LYMPHOCYTES # (AUTO) 1.7 K/uL (0.8-4.8); LYMPHOCYTES % (AUTO) 27.4 % (20.0-44.0); MEAN CORPUSCULAR HEMOGLOBIN 30 PG (26.0-33.0); MEAN CORPUSCULAR HGB CONC 34 g/dl (31.0-36.0); MEAN CORPUSCULAR VOLUME 89 fL (82-100); MONOCYTES # (AUTO) 0.6 K/uL (0.1-1.30); MONOCYTES % (AUTO) 8.8 % (2.0-12.0); NEUTROPHILS # (AUTO) 3.8 K/uL (1.8-8.9); NEUTROPHILS % (AUTO) 60.3 % (43.0-81.0); PLATELET COUNT (AUTO) 144 K/uL (150-450); RED BLOOD CELL COUNT(AUTO) 3.91 MIL/uL (4.0-5.2); RED CELL DISTRIBUTION WIDTH 13.4 % (11.5-15.0); WHITE BLOOD COUNT (AUTO) 6.3 K/uL (4.3-11.0)
[2023-05-22 07:41] LABS: ALBUMIN 3.3 g/dL (3.4-5.0); BILIRUBIN,TOTAL 0.3 mg/dL (0.2-1.0); CALCIUM, SERUM 9.1 mg/dL (8.5-10.1); CREATININE 1.1 mg/dL (0.6-1.3); POTASSIUM 3.9 mmol/L (3.5-5.1); TOTAL PROTEIN, SERUM 6.6 g/dL (6.4-8.2)
[2023-05-22 08:00] VITALS: BP 130/83; TEMP 98.6; O2SAT 99
[2023-05-22] MEDS: DOCUSATE SODIUM 250 MG CAPSULE PO SCH (08:25)
[2023-05-22] MEDS: MULTIVITAMINS,THERAGRAN 1 UDTAB TABLET PO SCH (08:25)
[2023-05-22] MEDS: CYANOCOBALAMIN 500 MCG TABLET PO SCH (08:25)
[2023-05-22 08:26] VITALS: BP 130/83
[2023-05-22] MEDS: BACLOFEN (10 MG) 10 MG TABLET PO SCH (08:26)
[2023-05-22] MEDS: ARIPIPRAZOLE 5 MG TABLET PO SCH (08:26)
[2023-05-22] MEDS: AMLODIPINE BESYLATE 10 MG TABLET PO SCH (08:26)
[2023-05-22] MEDS: ASCORBIC ACID 500 MG TABLET PO SCH (08:26)
[2023-05-22] MEDS: CHOLECALCIFEROL 1,000 UNIT TABLET (VIT D3) PO SCH (08:26)
[2023-05-22] MEDS: CALCIUM CARB 600MG /VIT D 1 EACH TABLET PO SCH (08:26)
[2023-05-22] MEDS: MULTIVITAMIN/LUTEIN/MINERALS 1 TAB PO SCH (08:26)
[2023-05-22] MEDS: OXCARBAZEPINE 150 MG TABLET PO SCH (08:26)
[2023-05-22] MEDS: PANTOPRAZOLE 40 MG TABLET.DR PO SCH (08:27)
[2023-05-22] MEDS: HYDROCORTISONE 1% CREAM 28.35 GM TUBE TP SCH (08:47)
[2023-05-22] MEDS: LORAZEPAM 0.5 MG TABLET PO PRN (10:58)
== END 2023-05-22 13:45 | DRG 885 ==
LOC: ER 18:51 → GPS 05-09 02:31
PROVIDERS: ADMIT Psychiatry & Neurology Psychosomatic Medicine; ATTEND Nurse Practitioner Acute Care
DX: F25.0 Schizoaffective disorder, bipolar type (principal); N18.9 Chronic kidney disease, unspecified; N17.0 Acute kidney failure with tubular necrosis; N39.0 Urinary tract infection, site not specified; J44.9 Chronic obstructive pulmonary disease, unspecified; K21.9 Gastro-esophageal reflux disease without esophagitis; Z20.822 Contact with and (suspected) exposure to COVID-19; D69.2 Other nonthrombocytopenic purpura; E78.5 Hyperlipidemia, unspecified; F41.9 Anxiety disorder, unspecified; F60.9 Personality disorder, unspecified; G20.A1 Parkinson's disease without dyskinesia, without mention of fluctuations; K59.09 Other constipation; M89.8X9 Other specified disorders of bone, unspecified site; Z91.199 Patient's noncompliance with other medical treatment and regimen due to unspecified reason; Z73.6 Limitation of activities due to disability; I12.9 Hypertensive chronic kidney disease with stage 1 through stage 4 chronic kidney disease, or unspecified chronic kidney disease; N28.89 Other specified disorders of kidney and ureter
CPT/HCPCS: 36415; 73060-TC; 74170-TC; 76770-TC; 80048-TC; 80053-TC; 80061-TC; 80076-TC; 81001; 82570-TC; 82962-TC; 83735-TC; 84100-TC; 84300-TC; 85025-TC; 85610-TC; 85730-TC; 87081-TC; 87086-TC; A4223; C9803; G0480; J0696; J7040; J7050; J7060; Q9967

== ENCOUNTER 2023-09-27 18:16 | Inpatient (IN) | payer MEDICARE, OTHER ==
[~2023-09-27] VITALS: Ht 157.5 cm; Wt 68.5 kg
[~2023-09-27 18:16] MED LIST changes: -ACET-2605 PO; +ARIP15TA3 PO; +ASCO-340 PO; -ATOR10TA PO; +ATOR20TA PO; +BACL10TA PO; +CHOL100040 PO; -DOCU100C36 PO; +DOCU250C14 PO; +FOLI1TAB26 PO; +HYDR-500 PO; +HYDR28.32 TP; +LORA-259 PO; -LURA40TA PO; +MAG-151 PO; +MAGN400O6 PO; -SENN-261 PO; +TRAM50TA2 PO; -TRIH2TAB4 PO
[2023-09-27 19:16] LABS: APPEARANCE,URINE Clear (CLEAR); BILIRUBIN,URINE Negative (NEGATIVE); BLOOD, URINE Negative Ery/uL (NEGATIVE); COLOR,URINE YELLOW (YELLOW); KETONES,URINE Negative (NEGATIVE); LEUKOCYTE ESTERASE ,URINE Negative (NEGATIVE); NITRITE, URINE Negative (NEGATIVE); PROTEIN,URINE Negative (NEGATIVE); UGLUCOSE Negative (NEGATIVE); UROBILINOGEN,URINE 0.2 EU/dL (0.2)
[2023-09-27 19:27] LABS: AMPHETAMINE, URINE NEGATIVE (NEGATIVE); BARBITURATE, URINE NEGATIVE (NEGATIVE); BENZODIAZEPINE, URINE NEGATIVE (NEGATIVE); CANNABINOID, URINE NEGATIVE (NEGATIVE); COCCAINE, URINE NEGATIVE (NEGATIVE); OPIATE, URINE NEGATIVE (NEGATIVE); PHENCYCLIDINE SCREEN,URINE NEGATIVE (NEGATIVE)
[2023-09-27 19:43] LABS: BASOPHILS % (AUTO) 0.5 % (0.0-2.0); EOSINOPHILS # (AUTO) 0.1 K/uL (0.0-0.7); EOSINOPHILS % (AUTO) 1.3 % (0.0-6.0); HEMATOCRIT 38 % (33-45); HEMOGLOBIN 12.8 g/dL (11.5-14.8); LYMPHOCYTES # (AUTO) 2.1 K/uL (0.8-4.8); MEAN CORPUSCULAR HEMOGLOBIN 30 PG (26.0-33.0); MEAN CORPUSCULAR HGB CONC 34 g/dl (31.0-36.0); MEAN CORPUSCULAR VOLUME 87 fL (82-100); MONOCYTES # (AUTO) 0.5 K/uL (0.1-1.30); MONOCYTES % (AUTO) 6.8 % (2.0-12.0); NEUTROPHILS % (AUTO) 60.4 % (43.0-81.0); PLATELET COUNT (AUTO) 143 K/uL (150-450); RED BLOOD CELL COUNT(AUTO) 4.34 MIL/uL (4.0-5.2); RED CELL DISTRIBUTION WIDTH 13.5 % (11.5-15.0); WHITE BLOOD COUNT (AUTO) 6.7 K/uL (4.3-11.0)
[2023-09-27 19:50] LABS: CALCIUM, SERUM 9.4 mg/dL (8.5-10.1); CARBON DIOXIDE 30 mmol/L (21-32); CHLORIDE 105 mmol/L (98-107); CREATININE 1.1 mg/dL (0.6-1.3); GLUCOSE 90 mg/dL (74-106); POTASSIUM 3.9 mmol/L (3.5-5.1); SODIUM SERUM 140 mmol/L (136-145); UREA NITROGEN, BLOOD 23 mg/dL (7-18)
[2023-09-27 19:56] LABS: ALANINE AMINOTRANSFERASE 20 U/L (12-78); ALCOHOL, BLOOD < 3 mg/dL (0-10); ALKALINE PHOSPHATASE 121 U/L (46-116); ASPARTATE AMINOTRANSFERASE 15 U/L (15-37); BILIRUBIN,DIRECT 0.1 mg/dL (0.0-0.2); BILIRUBIN,TOTAL 0.4 mg/dL (0.2-1.0); SALICYLATE 2.9 mg/dL (2.8-20.0); TOTAL PROTEIN, SERUM 7.6 g/dL (6.4-8.2)
[2023-09-27 20:02] LABS: ACETAMINOPHEN <10 ug/ml (10-30)
[2023-09-27] MEDS ORDERED: [UNRECOGNIZED DRUG - OTHER] PO (20:13)
[2023-09-27] MEDS ORDERED: PANT40TA49 PO (20:13)
[2023-09-27] MEDS ORDERED: IBUP-1953 PO (20:13)
[2023-09-27] MEDS ORDERED: TEMA15CA PO (20:13)
[2023-09-27] MEDS ORDERED: GLUC1KIT IM (20:13)
[2023-09-27] MEDS ORDERED: NA P133E RC (20:13)
[2023-09-27] MEDS ORDERED: GABA-532 PO (20:13)
[2023-09-27] MEDS ORDERED: ARIP10TA57 PO (20:13)
[2023-09-27] MEDS ORDERED: OXCA150T13 PO (20:13)
[2023-09-27] MEDS ORDERED: BISA10SU61 RC (20:13)
[2023-09-27] MEDS ORDERED: VALP250S4 PO (20:13)
[2023-09-27] MEDS: BLOOD SUGAR DIAGNOSTIC 1 EACH STRIP IN ONE (22:48)
[2023-09-27] MEDS: TEMAZEPAM 7.5 MG CAPSULE PO PRN (22:53)
[2023-09-27 23:18] VITALS: BP 139/87; TEMP 97.9; O2SAT 96
[2023-09-28] MEDS: LORAZEPAM 0.5 MG TABLET PO PRN (06:57)
[2023-09-28 07:48] LABS: ALBUMIN 3.7 g/dL (3.4-5.0); BILIRUBIN,TOTAL 0.5 mg/dL (0.2-1.0); CALCIUM, SERUM 9.3 mg/dL (8.5-10.1); CREATININE 1.2 mg/dL (0.6-1.3); POTASSIUM 3.8 mmol/L (3.5-5.1); TOTAL PROTEIN, SERUM 7.2 g/dL (6.4-8.2)
[2023-09-28 07:49] LABS: CHOLESTEROL 139 mg/dL (<200); HDL CHOLESTEROL 54 mg/dL (40-60); LDL 61 mg/dL (0-99); TRIGLYCERIDES 134 mg/dL (30-150)
[2023-09-28 08:00] VITALS: BP 130/73; TEMP 97.8; O2SAT 99
[2023-09-28] MEDS: ARIPIPRAZOLE 5 MG TABLET PO SCH (10:30)
[2023-09-28] MEDS ORDERED: MAG HYDROX/AL HYDROX/SIMETH 30 ML UDC PO PRN (11:30)
[2023-09-28] MEDS ORDERED: NA PHOS,M-B/NA PHOS,DI-BA 1 EA ENEMA RC PRN (11:30)
[2023-09-28] MEDS ORDERED: MAGNESIUM HYDROXIDE 30 ML UDC PO PRN (11:30)
[2023-09-28] MEDS ORDERED: BISACODYL SUPP (10 MG) 10 MG/SUPP.RECT SUPP.RECT RC PRN (11:30)
[2023-09-28] MEDS ORDERED: ACETAMINOPHEN 325 MG TABLET PO PRN (11:30)
[2023-09-28] MEDS: GABAPENTIN 100 MG CAPSULE PO SCH (12:27)
[2023-09-28] MEDS: DIVALPROEX SODIUM 125 MG CAP.SPRINK PO SCH (12:28)
[2023-09-28] MEDS: NICOTINE PATCH (7MG) 7 MG PATCH.TD24 TD SCH (13:17)
[2023-09-28 16:00] VITALS: BP 135/81; TEMP 98.9; O2SAT 97
[2023-09-28] MEDS: TRAMADOL HCL 50 MG TABLET PO PRN (16:37)
[2023-09-28] MEDS ORDERED: OXCARBAZEPINE 150 MG TABLET PO SCH (17:00)
[2023-09-28 20:00] VITALS: BP 135/88; TEMP 98.4; O2SAT 98
[2023-09-28] MEDS: TRIHEXYPHENIDYL HCL 2 MG TABLET PO SCH (20:27)
[2023-09-28] MEDS: ATORVASTATIN 10 MG TABLET PO SCH (21:32)
[2023-09-29] MEDS: BACLOFEN (10 MG) 10 MG TABLET PO PRN (02:21)
[2023-09-29] MEDS: ACETAMINOPHEN 325 MG TABLET PO PRN (04:17)
[2023-09-29 08:00] VITALS: BP 138/84; TEMP 98.6; O2SAT 99
[2023-09-29] MEDS: PANTOPRAZOLE 40 MG TABLET.DR PO SCH (08:51)
[2023-09-29] MEDS: MULTIVITAMINS,THERAGRAN 1 UDTAB TABLET PO SCH (08:51)
[2023-09-29] MEDS: MULTIVITAMIN/LUTEIN/MINERALS 1 TAB PO SCH (08:51)
[2023-09-29] MEDS: VITAMIN E 400 UNIT CAPSULE PO SCH (08:52)
[2023-09-29] MEDS: DOCUSATE SODIUM 250 MG CAPSULE PO SCH (08:52)
[2023-09-29] MEDS: AMLODIPINE BESYLATE 10 MG TABLET PO SCH (08:52)
[2023-09-29] MEDS: MAGNESIUM HYDROXIDE 30 ML UDC PO PRN (13:20)
[2023-09-29 16:00] VITALS: BP 153/77; TEMP 97.7; O2SAT 97
[2023-09-29 20:00] VITALS: BP 150/96; TEMP 98.4; O2SAT 99
[2023-09-29] MEDS: TEMAZEPAM 15 MG CAPSULE PO PRN (23:32)
[2023-09-30 08:00] VITALS: BP 126/73; TEMP 98; O2SAT 98
[2023-09-30 16:00] VITALS: BP 118/74; TEMP 98; O2SAT 99
[2023-09-30] MEDS: LORAZEPAM 0.5 MG TABLET PO PRN (17:59)
[2023-09-30 20:00] VITALS: BP 138/75; TEMP 98.1; O2SAT 98
[2023-10-01 08:00] VITALS: BP 127/81; TEMP 98; O2SAT 95
[2023-10-01] MEDS: PANTOPRAZOLE 40 MG TABLET.DR PO SCH (08:15)
[2023-10-01 16:00] VITALS: BP 119/74; TEMP 98; O2SAT 100
[2023-10-01 20:38] VITALS: BP 154/88; TEMP 98.2; O2SAT 98
[2023-10-02 08:00] VITALS: BP 123/79; TEMP 98.7; O2SAT 96
[2023-10-02 16:00] VITALS: BP 128/77; TEMP 98.1; O2SAT 100
[2023-10-02 20:46] VITALS: BP 112/63; TEMP 98.2; O2SAT 98
[2023-10-03 08:00] VITALS: BP 131/90; TEMP 97.8; O2SAT 98
[2023-10-03] MEDS: CALCIUM CARBONATE 500 MG TAB.CHEW PO PRN (08:36)
[2023-10-03] MEDS: ASCORBIC ACID 500 MG TABLET PO SCH (08:37)
[2023-10-03 16:00] VITALS: BP 138/80; TEMP 98.7; O2SAT 98
[2023-10-03] MEDS: ARIPIPRAZOLE 5 MG TABLET PO SCH (20:10)
[2023-10-03 22:35] VITALS: BP 118/70; TEMP 97.5; O2SAT 99
[2023-10-04 07:25] LABS: BASOPHILS % (AUTO) 0.5 % (0.0-2.0); EOSINOPHILS # (AUTO) 0.1 K/uL (0.0-0.7); EOSINOPHILS % (AUTO) 1.9 % (0.0-6.0); HEMATOCRIT 40 % (33-45); HEMOGLOBIN 13.6 g/dL (11.5-14.8); LYMPHOCYTES # (AUTO) 1.7 K/uL (0.8-4.8); LYMPHOCYTES % (AUTO) 37.9 % (20.0-44.0); MEAN CORPUSCULAR HEMOGLOBIN 30 PG (26.0-33.0); MEAN CORPUSCULAR HGB CONC 34 g/dl (31.0-36.0); MEAN CORPUSCULAR VOLUME 88 fL (82-100); MONOCYTES # (AUTO) 0.3 K/uL (0.1-1.30); MONOCYTES % (AUTO) 7.5 % (2.0-12.0); NEUTROPHILS # (AUTO) 2.3 K/uL (1.8-8.9); NEUTROPHILS % (AUTO) 52.2 % (43.0-81.0); PLATELET COUNT (AUTO) 128 K/uL (150-450); RED BLOOD CELL COUNT(AUTO) 4.58 MIL/uL (4.0-5.2); RED CELL DISTRIBUTION WIDTH 13.3 % (11.5-15.0); WHITE BLOOD COUNT (AUTO) 4.4 K/uL (4.3-11.0)
[2023-10-04 07:55] LABS: ALBUMIN 3.6 g/dL (3.4-5.0); BILIRUBIN,TOTAL 0.4 mg/dL (0.2-1.0); CALCIUM, SERUM 9.2 mg/dL (8.5-10.1); CREATININE 1.2 mg/dL (0.6-1.3); TOTAL PROTEIN, SERUM 7.1 g/dL (6.4-8.2)
[2023-10-04 08:00] VITALS: BP 144/85; TEMP 98.7; O2SAT 99
[2023-10-04 16:00] VITALS: BP 116/65; TEMP 97.7; O2SAT 98
[2023-10-04] MEDS: MAG HYDROX/AL HYDROX/SIMETH 30 ML UDC PO PRN (18:45)
[2023-10-04 20:33] VITALS: BP 139/75; TEMP 97.8; O2SAT 99
[2023-10-04] MEDS: ALPRAZOLAM 0.25 MG TABLET PO PRN (21:28)
[2023-10-05 08:00] VITALS: BP 114/81; TEMP 98.1; O2SAT 97
[2023-10-05 16:00] VITALS: BP 118/65; TEMP 97.7; O2SAT 98
[2023-10-05 20:00] VITALS: BP 121/84; TEMP 98.5; O2SAT 99
[2023-10-06 08:00] VITALS: BP 133/71; TEMP 98; O2SAT 98
[2023-10-06 16:00] VITALS: BP 129/81; TEMP 98; O2SAT 96
[2023-10-06 20:00] VITALS: BP 138/95; TEMP 98.4; O2SAT 98
[2023-10-06] MEDS: DIVALPROEX SODIUM 125 MG CAP.SPRINK PO SCH (22:12)
[2023-10-07 08:00] VITALS: BP 142/87; TEMP 98; O2SAT 96
[2023-10-07] MEDS: DIVALPROEX SODIUM 125 MG CAP.SPRINK PO SCH (08:35)
[2023-10-07 16:00] VITALS: BP 124/78; TEMP 97.7; O2SAT 97
[2023-10-07 20:32] VITALS: BP 119/97; TEMP 98; O2SAT 96
[2023-10-08] MEDS: PANTOPRAZOLE 40 MG TABLET.DR PO SCH (06:27)
[2023-10-08 08:00] VITALS: BP 106/50; TEMP 97.8; O2SAT 100
[2023-10-08 16:00] VITALS: BP 106/55; TEMP 98; O2SAT 100
[2023-10-08 21:08] VITALS: BP 126/56; TEMP 98.1; O2SAT 100
[2023-10-09 08:00] VITALS: BP 134/79; TEMP 98.7; O2SAT 98
[2023-10-09 16:00] VITALS: BP 121/87; TEMP 98.7; O2SAT 98
[2023-10-09 20:55] VITALS: BP 136/60; TEMP 97.7; O2SAT 100
[2023-10-10 07:26] LABS: BASOPHILS % (AUTO) 0.5 % (0.0-2.0); EOSINOPHILS # (AUTO) 0.1 K/uL (0.0-0.7); EOSINOPHILS % (AUTO) 2.5 % (0.0-6.0); HEMATOCRIT 36 % (33-45); HEMOGLOBIN 12.2 g/dL (11.5-14.8); LYMPHOCYTES # (AUTO) 1.9 K/uL (0.8-4.8); MEAN CORPUSCULAR HEMOGLOBIN 30 PG (26.0-33.0); MEAN CORPUSCULAR HGB CONC 34 g/dl (31.0-36.0); MEAN CORPUSCULAR VOLUME 89 fL (82-100); MONOCYTES # (AUTO) 0.5 K/uL (0.1-1.30); MONOCYTES % (AUTO) 10.1 % (2.0-12.0); NEUTROPHILS # (AUTO) 2.3 K/uL (1.8-8.9); NEUTROPHILS % (AUTO) 47.9 % (43.0-81.0); PLATELET COUNT (AUTO) 98 K/uL (150-450); RED BLOOD CELL COUNT(AUTO) 4.04 MIL/uL (4.0-5.2); RED CELL DISTRIBUTION WIDTH 13.1 % (11.5-15.0); WHITE BLOOD COUNT (AUTO) 4.9 K/uL (4.3-11.0)
[2023-10-10 08:00] VITALS: BP 131/79; TEMP 98.1; O2SAT 100
[2023-10-10 10:11] LABS: LYMPHOCYTES % (MANUAL) 40 % (16-48); MONOCYTES % (MANUAL) 13 % (0-11.0); NEUTROPHILS % (MANUAL) 47 (42-76); PLATELET ESTIMATE DECREASED
[2023-10-10 16:00] VITALS: BP 109/63; TEMP 97.9; O2SAT 98
[2023-10-10] MEDS: TRIHEXYPHENIDYL HCL 2 MG TABLET PO SCH (20:00)
[2023-10-10] MEDS: ARIPIPRAZOLE 5 MG TABLET PO SCH (20:08)
[2023-10-10] MEDS: DIVALPROEX SODIUM 125 MG CAP.SPRINK PO SCH (20:09)
[2023-10-10] MEDS: ALPRAZOLAM 0.5 MG TABLET PO PRN (20:19)
[2023-10-10 20:41] VITALS: BP 139/74; TEMP 97.8; O2SAT 99
[2023-10-11 08:00] VITALS: BP 135/91; TEMP 98.6; O2SAT 99
[2023-10-11 08:13] LABS: ALBUMIN 3.1 g/dL (3.4-5.0); BILIRUBIN,TOTAL 0.4 mg/dL (0.2-1.0); CREATININE 1.2 mg/dL (0.6-1.3); POTASSIUM 4.1 mmol/L (3.5-5.1); TOTAL PROTEIN, SERUM 6.4 g/dL (6.4-8.2)
[2023-10-11 08:22] VITALS: BP 135/91
== END 2023-10-11 14:35 | DRG 885 ==
LOC: ER 18:16 → GPS 21:44
PROVIDERS: ADMIT Psychiatry & Neurology Psychosomatic Medicine; ATTEND Nurse Practitioner Acute Care
DX: F25.0 Schizoaffective disorder, bipolar type (principal); J44.9 Chronic obstructive pulmonary disease, unspecified; K21.9 Gastro-esophageal reflux disease without esophagitis; E78.5 Hyperlipidemia, unspecified; E86.0 Dehydration; F60.9 Personality disorder, unspecified; I10 Essential (primary) hypertension; Z79.899 Other long term (current) drug therapy; Z73.6 Limitation of activities due to disability; F39 Unspecified mood [affective] disorder; Z87.891 Personal history of nicotine dependence; Z20.822 Contact with and (suspected) exposure to COVID-19; Z91.199 Patient's noncompliance with other medical treatment and regimen due to unspecified reason
CPT/HCPCS: 36415; 80048-TC; 80053-TC; 80061-TC; 80076-TC; 80164-TC; 82962-TC; 85025-TC; 87081-TC; G0480

== ENCOUNTER 2023-10-26 16:29 | Inpatient (IN) | payer MEDICARE, OTHER ==
[~2023-10-26] VITALS: Ht 157.5 cm; Wt 71.7 kg
[~2023-10-26 16:29] MED LIST changes: +ARIP10TA57 PO; -ARIP15TA3 PO; -ASCO-340 PO; +BISA10SU61 RC; -CHOL100040 PO; -FOLI1TAB26 PO; +GABA-532 PO; +GLUC1KIT IM; -HYDR-500 PO; -HYDR28.32 TP; +IBUP-1953 PO; -LAMO100T2 PO; -MAG-151 PO; -MELA3TAB41 PO; +NA P133E RC; -OMEP40CA21 PO; +OXCA150T13 PO; +PANT40TA49 PO; +TEMA15CA PO; +VALP250S4 PO; +[UNRECOGNIZED DRUG - OTHER] PO
[2023-10-26 19:23] LABS: CALCIUM, SERUM 8.9 mg/dL (8.5-10.1); CARBON DIOXIDE 26 mmol/L (21-32); CHLORIDE 106 mmol/L (98-107); CREATININE 1.2 mg/dL (0.6-1.3); GLUCOSE 132 mg/dL (74-106); POTASSIUM 3.9 mmol/L (3.5-5.1); SODIUM SERUM 141 mmol/L (136-145); UREA NITROGEN, BLOOD 19 mg/dL (7-18)
[2023-10-26 19:29] LABS: ALANINE AMINOTRANSFERASE 23 U/L (12-78); ALBUMIN 3.6 g/dL (3.4-5.0); ALCOHOL, BLOOD < 3 mg/dL (0-10); ALKALINE PHOSPHATASE 111 U/L (46-116); ASPARTATE AMINOTRANSFERASE 18 U/L (15-37); BILIRUBIN,DIRECT 0.1 mg/dL (0.0-0.2); BILIRUBIN,TOTAL 0.4 mg/dL (0.2-1.0); SALICYLATE 2.9 mg/dL (2.8-20.0); TOTAL PROTEIN, SERUM 7.2 g/dL (6.4-8.2)
[2023-10-26 19:34] LABS: BASOPHILS # (AUTO) 0.1 K/uL (0.0-0.2); BASOPHILS % (AUTO) 1.5 % (0.0-2.0); EOSINOPHILS # (AUTO) 0.5 K/uL (0.0-0.7); EOSINOPHILS % (AUTO) 7.9 % (0.0-6.0); HEMATOCRIT 41 % (33-45); HEMOGLOBIN 13.1 g/dL (11.5-14.8); LYMPHOCYTES # (AUTO) 1.3 K/uL (0.8-4.8); LYMPHOCYTES % (AUTO) 18.5 % (20.0-44.0); MEAN CORPUSCULAR HEMOGLOBIN 30 PG (26.0-33.0); MEAN CORPUSCULAR HGB CONC 32 g/dl (31.0-36.0); MEAN CORPUSCULAR VOLUME 96 fL (82-100); MONOCYTES # (AUTO) 0.6 K/uL (0.1-1.30); MONOCYTES % (AUTO) 9.4 % (2.0-12.0); NEUTROPHILS # (AUTO) 4.3 K/uL (1.8-8.9); NEUTROPHILS % (AUTO) 62.7 % (43.0-81.0); PLATELET COUNT (AUTO) 139 K/uL (150-450); RED BLOOD CELL COUNT(AUTO) 4.32 MIL/uL (4.0-5.2); RED CELL DISTRIBUTION WIDTH 15.2 % (11.5-15.0); WHITE BLOOD COUNT (AUTO) 6.9 K/uL (4.3-11.0)
[2023-10-26 19:41] LABS: ACETAMINOPHEN 0 ug/ml (10-30)
[2023-10-27] MEDS ORDERED: DIVA125C2 PO ×2 (01:44→01:45)
[2023-10-27] MEDS ORDERED: MULT-479 PO (01:46)
[2023-10-27] MEDS ORDERED: TRIH2TAB4 PO (01:47)
[2023-10-27] MEDS ORDERED: ARIP15TA3 PO (01:49)
[2023-10-27] MEDS: BLOOD SUGAR DIAGNOSTIC 1 EACH STRIP IN ONE (02:02)
[2023-10-27 08:00] VITALS: BP 112/72; TEMP 97.6; O2SAT 94
[2023-10-27] MEDS ORDERED: ALPR0.5T PO (09:05)
[2023-10-27] MEDS ORDERED: DOCU100C36 PO (09:05)
[2023-10-27] MEDS: GABAPENTIN 100 MG CAPSULE PO SCH (13:06)
[2023-10-27] MEDS: LORAZEPAM 0.5 MG TABLET PO PRN (13:06)
[2023-10-27] MEDS: AMLODIPINE BESYLATE 10 MG TABLET PO SCH (13:07)
[2023-10-27] MEDS: ARIPIPRAZOLE 5 MG TABLET PO SCH (15:18)
[2023-10-27] MEDS: DIVALPROEX SODIUM 250 MG TABLET.DR PO SCH (15:18)
[2023-10-27 16:00] VITALS: BP 133/63; TEMP 97.6; O2SAT 98
[2023-10-27] MEDS: TRIHEXYPHENIDYL HCL 2 MG TABLET PO SCH (17:14)
[2023-10-27] MEDS: BACLOFEN (10 MG) 10 MG TABLET PO SCH (17:14)
[2023-10-27 20:00] VITALS: BP 105/72; TEMP 97.8; O2SAT 99
[2023-10-27] MEDS: ATORVASTATIN 10 MG TABLET PO SCH (21:44)
[2023-10-28] MEDS: TEMAZEPAM 7.5 MG CAPSULE PO PRN (02:37)
[2023-10-28] MEDS: MAGNESIUM HYDROXIDE 30 ML UDC PO PRN (04:58)
[2023-10-28 08:00] VITALS: BP 126/87; TEMP 98; O2SAT 100
[2023-10-28] MEDS: PANTOPRAZOLE 40 MG TABLET.DR PO SCH (09:04)
[2023-10-28] MEDS: DOCUSATE SODIUM 100 MG CAPSULE PO SCH (09:09)
[2023-10-28] MEDS: MULTIVITAMIN/LUTEIN/MINERALS 1 TAB PO SCH (09:19)
[2023-10-28] MEDS: VITAMINS A AND D 56.7 GM TUBE TP PRN (10:53)
[2023-10-28 15:36] LABS: BASOPHILS % (AUTO) 0.6 % (0.0-2.0); EOSINOPHILS # (AUTO) 0.1 K/uL (0.0-0.7); EOSINOPHILS % (AUTO) 1.7 % (0.0-6.0); HEMATOCRIT 38 % (33-45); HEMOGLOBIN 12.9 g/dL (11.5-14.8); LYMPHOCYTES % (AUTO) 29.2 % (20.0-44.0); MEAN CORPUSCULAR HEMOGLOBIN 31 PG (26.0-33.0); MEAN CORPUSCULAR HGB CONC 34 g/dl (31.0-36.0); MEAN CORPUSCULAR VOLUME 89 fL (82-100); MONOCYTES # (AUTO) 0.6 K/uL (0.1-1.30); MONOCYTES % (AUTO) 8.9 % (2.0-12.0); NEUTROPHILS # (AUTO) 4.1 K/uL (1.8-8.9); NEUTROPHILS % (AUTO) 59.6 % (43.0-81.0); PLATELET COUNT (AUTO) 133 K/uL (150-450); RED BLOOD CELL COUNT(AUTO) 4.21 MIL/uL (4.0-5.2); RED CELL DISTRIBUTION WIDTH 13.5 % (11.5-15.0); WHITE BLOOD COUNT (AUTO) 6.9 K/uL (4.3-11.0)
[2023-10-28 15:54] LABS: CALCIUM, SERUM 8.8 mg/dL (8.5-10.1); CREATININE 1.3 mg/dL (0.6-1.3); POTASSIUM 4.3 mmol/L (3.5-5.1)
[2023-10-28 16:00] VITALS: BP 132/83; TEMP 98; O2SAT 98
[2023-10-28] MEDS: risperiDONE-M 0.5 MG TAB.RAPDIS PO SCH (19:30)
[2023-10-28 20:00] VITALS: BP 128/62; TEMP 98.1; O2SAT 98
[2023-10-29 08:00] VITALS: BP 124/64; TEMP 98.4; O2SAT 100
[2023-10-29] MEDS: OXCARBAZEPINE 150 MG TABLET PO SCH ×2 (09:26→17:00)
[2023-10-29 16:00] VITALS: BP 121/66; TEMP 98.6; O2SAT 99
[2023-10-29] MEDS: risperiDONE-M 0.5 MG TAB.RAPDIS PO SCH (17:00)
[2023-10-29] MEDS: AMOX/CLAVULANATE 875 MG TABLET PO SCH (17:57)
[2023-10-29] MEDS: OLANZAPINE 10 MG VIAL IM PRN (18:12)
[2023-10-29 20:24] VITALS: BP 141/78; TEMP 98.2; O2SAT 98
[2023-10-30 08:00] VITALS: BP 121/77; TEMP 97.9; O2SAT 97
[2023-10-30] MEDS: risperiDONE-M 0.5 MG TAB.RAPDIS PO SCH (13:59)
[2023-10-30 16:00] VITALS: BP 140/80; TEMP 98.7; O2SAT 96
[2023-10-30 20:00] VITALS: BP 144/84; TEMP 98; O2SAT 97
[2023-10-30 20:58] VITALS: BP 144/84; TEMP 98; O2SAT 97
[2023-10-31] MEDS: ACETAMINOPHEN 325 MG TABLET PO PRN (04:49)
[2023-10-31 08:00] VITALS: BP 131/76; TEMP 97.7; O2SAT 98
[2023-10-31 16:00] VITALS: BP 144/80; TEMP 98.6; O2SAT 100
[2023-10-31 20:49] VITALS: BP 136/111; TEMP 98.4; O2SAT 98
[2023-10-31] MEDS: diphenhydrAMINE HCL 25 MG CAPSULE PO PRN (22:30)
[2023-11-01 08:00] VITALS: BP 151/90; TEMP 98.6; O2SAT 98
[2023-11-01] MEDS: risperiDONE-M 0.5 MG TAB.RAPDIS PO SCH (14:07)
[2023-11-01 16:00] VITALS: BP 135/90; TEMP 97.9; O2SAT 96
[2023-11-01] MEDS: risperiDONE 1 MG TABLET PO SCH (18:49)
[2023-11-01 20:30] VITALS: BP 119/69; TEMP 98.4; O2SAT 97
[2023-11-01] MEDS: BISACODYL (5 MG) 5 MG TABLET.DR PO SCH (21:37)
[2023-11-02 08:00] VITALS: BP 133/83; TEMP 97.7; O2SAT 99
[2023-11-02] MEDS: OLANZAPINE 10 MG VIAL IM PRN (10:15)
[2023-11-02 16:00] VITALS: BP 131/74; TEMP 98; O2SAT 99
[2023-11-03 08:00] VITALS: BP 149/70; TEMP 97.6; O2SAT 96
[2023-11-03 16:00] VITALS: BP 144/90; TEMP 97.6; O2SAT 96
[2023-11-03 20:00] VITALS: BP 135/67; TEMP 98.5; O2SAT 96
[2023-11-04 08:00] VITALS: BP 137/87; TEMP 97.5; O2SAT 98
[2023-11-04 16:04] VITALS: BP 143/85; TEMP 98; O2SAT 97
[2023-11-04 21:50] VITALS: BP 149/84; TEMP 98; O2SAT 99
[2023-11-05] MEDS ORDERED: OMEPRAZOLE 20 MG CAPSULE.DR PO SCH (07:30)
[2023-11-05 08:00] VITALS: BP 148/93; TEMP 98.1; O2SAT 96
[2023-11-05] MEDS: CYANOCOBALAMIN 100 MCG TABLET PO SCH (08:05)
[2023-11-05 16:00] VITALS: BP 154/86; TEMP 98.4; O2SAT 96
[2023-11-05 21:22] VITALS: BP 150/89; TEMP 98.2; O2SAT 97
[2023-11-06] MEDS: PANTOPRAZOLE 40 MG TABLET.DR PO SCH (07:30)
[2023-11-06 08:00] VITALS: BP 113/90; TEMP 98.7; O2SAT 100
[2023-11-06] MEDS ORDERED: PALIPERIDONE PALMITATE 117 MG/0.75 ML SYRINGE IM ONE (10:30)
[2023-11-06] MEDS: PALIPERIDONE PALMITATE 117 MG/0.75 ML SYRINGE IM ONE (12:03)
[2023-11-06 16:00] VITALS: BP 150/83; TEMP 98.6; O2SAT 97
[2023-11-06 21:03] VITALS: BP 155/100; TEMP 98.4; O2SAT 97
[2023-11-07 08:00] VITALS: BP 133/90; TEMP 97.9; O2SAT 98
[2023-11-07 16:00] VITALS: BP 148/87; TEMP 97.9; O2SAT 99
[2023-11-07] MEDS: MAG HYDROX/AL HYDROX/SIMETH 30 ML UDC PO PRN (19:50)
[2023-11-07 20:23] VITALS: BP 156/116; TEMP 98.4; O2SAT 99
[2023-11-08 08:00] VITALS: BP 145/83; TEMP 98.6; O2SAT 97
[2023-11-08 16:00] VITALS: BP 145/83; TEMP 97.8; O2SAT 99
[2023-11-08 20:54] VITALS: BP 149/92; TEMP 98.4; O2SAT 98
[2023-11-09 08:00] VITALS: BP 126/66; TEMP 98; O2SAT 96
[2023-11-09] MEDS: NEOMY SULF/BACITRAC ZN/POLY 15 GM TUBE TP SCH (14:13)
[2023-11-09 16:00] VITALS: BP 132/85; TEMP 98; O2SAT 96
[2023-11-09 20:00] VITALS: BP 109/68; TEMP 98.3; O2SAT 98
[2023-11-10 08:00] VITALS: BP 159/90; TEMP 98; O2SAT 98
[2023-11-10] MEDS: POLYETHYLENE GLYCOL 3350 17 GM POWD.PACK PO SCH (11:06)
[2023-11-10 16:00] VITALS: BP 137/89; TEMP 98; O2SAT 98
[2023-11-10 20:00] VITALS: BP 141/80; TEMP 98; TEMP 98.9; O2SAT 99
[2023-11-11 08:00] VITALS: BP 148/92; TEMP 100.4; O2SAT 98
[2023-11-11 13:04] LABS: EOSINOPHILS # (AUTO) 0.1 K/uL (0.0-0.7); EOSINOPHILS % (AUTO) 0.6 % (0.0-6.0); HEMOGLOBIN 12.6 g/dL (11.5-14.8); MEAN CORPUSCULAR HEMOGLOBIN 29 PG (26.0-33.0)
[2023-11-11 13:38] LABS: CALCIUM, SERUM 8.6 mg/dL (8.5-10.1); CREATININE 1.2 mg/dL (0.6-1.3); POTASSIUM 4.6 mmol/L (3.5-5.1)
[2023-11-11 13:53] LABS: BASOPHILS # (AUTO) 0.1 K/uL (0.0-0.2); BASOPHILS % (AUTO) 1.1 % (0.0-2.0); HEMATOCRIT 38 % (33-45); LYMPHOCYTES # (AUTO) 1.2 K/uL (0.8-4.8); LYMPHOCYTES % (AUTO) 10.3 % (20.0-44.0); MEAN CORPUSCULAR HGB CONC 33 g/dl (31.0-36.0); MEAN CORPUSCULAR VOLUME 89 fL (82-100); MONOCYTES % (AUTO) 8.7 % (2.0-12.0); NEUTROPHILS # (AUTO) 9.2 K/uL (1.8-8.9); NEUTROPHILS % (AUTO) 79.3 % (43.0-81.0); PLATELET COUNT (AUTO) 70 K/uL (150-450); RED BLOOD CELL COUNT(AUTO) 4.31 MIL/uL (4.0-5.2); RED CELL DISTRIBUTION WIDTH 13.4 % (11.5-15.0); WHITE BLOOD COUNT (AUTO) 11.6 K/uL (4.3-11.0)
[2023-11-11 16:00] VITALS: BP 130/76; TEMP 102.4; O2SAT 96
[2023-11-11 16:35] LABS: APPEARANCE,URINE CLEAR (CLEAR); BILIRUBIN,URINE NEGATIVE (NEGATIVE); BLOOD, URINE 2+ Ery/uL (NEGATIVE); COLOR,URINE YELLOW (YELLOW); KETONES,URINE NEGATIVE (NEGATIVE); LEUKOCYTE ESTERASE ,URINE 2+ (NEGATIVE); NITRITE, URINE NEGATIVE (NEGATIVE); PH,URINE 7.5 (5.0-8.0); PROTEIN,URINE 1+ mg/dl (NEGATIVE); UGLUCOSE NEGATIVE (NEGATIVE); UROBILINOGEN,URINE 0.2 EU/dL (0.2)
[2023-11-11 16:44] LABS: ADD URINE CULTURE YES; BACTERIA,URINE 3+ /HPF (None Seen); RBC,URINE 21-50 /HPF (0-2); SQUAMOUS EPITHELIAL CELL,UR 0-2 /HPF (None Seen); WBC,URINE 21-50 /HPF (0-3)
[2023-11-11 17:04] LABS: LYMPHOCYTES % (MANUAL) 10 % (16-48); MONOCYTES % (MANUAL) 4 % (0-11.0); NEUTROPHILS % (MANUAL) 86 (42-76); PLATELET ESTIMATE DECRE
[2023-11-11 17:05] LABS: ANISOCYTOSIS 1+
[2023-11-11 20:00] VITALS: BP 114/64; TEMP 98.3; O2SAT 99
[2023-11-11] MEDS: CIPROFLOXACIN HCL 250 MG TABLET PO SCH (21:29)
[2023-11-11 21:54] VITALS: BP 114/61; TEMP 98.3; O2SAT 99
[2023-11-12 10:54] VITALS: BP 118/71; TEMP 98.1; O2SAT 91
[2023-11-12 20:00] VITALS: BP 117/87; TEMP 98; O2SAT 97
[2023-11-13] MEDS: PALIPERIDONE PALMITATE 156 MG/ML IM ONE (13:59)
[2023-11-13 20:56] VITALS: BP 133/77; TEMP 98; O2SAT 100
[2023-11-14 07:43] LABS: BASOPHILS % (AUTO) 0.4 % (0.0-2.0); EOSINOPHILS # (AUTO) 0.1 K/uL (0.0-0.7); EOSINOPHILS % (AUTO) 2.5 % (0.0-6.0); HEMATOCRIT 33 % (33-45); HEMOGLOBIN 11.1 g/dL (11.5-14.8); LYMPHOCYTES # (AUTO) 1.5 K/uL (0.8-4.8); LYMPHOCYTES % (AUTO) 27.4 % (20.0-44.0); MEAN CORPUSCULAR HEMOGLOBIN 30 PG (26.0-33.0); MEAN CORPUSCULAR HGB CONC 34 g/dl (31.0-36.0); MEAN CORPUSCULAR VOLUME 89 fL (82-100); MONOCYTES # (AUTO) 0.6 K/uL (0.1-1.30); MONOCYTES % (AUTO) 10.2 % (2.0-12.0); NEUTROPHILS # (AUTO) 3.2 K/uL (1.8-8.9); NEUTROPHILS % (AUTO) 59.5 % (43.0-81.0); PLATELET COUNT (AUTO) 139 K/uL (150-450); WHITE BLOOD COUNT (AUTO) 5.4 K/uL (4.3-11.0)
[2023-11-14 08:00] VITALS: BP 131/82; TEMP 98.1; O2SAT 97
[2023-11-14 08:37] VITALS: BP 131/82
== END 2023-11-14 14:07 | DRG 885 ==
LOC: ER 16:29 → GPS 21:49
PROVIDERS: ADMIT Psychiatry & Neurology Psychosomatic Medicine
DX: F25.0 Schizoaffective disorder, bipolar type (principal); N39.0 Urinary tract infection, site not specified; F29 Unspecified psychosis not due to a substance or known physiological condition; I10 Essential (primary) hypertension; G20.A1 Parkinson's disease without dyskinesia, without mention of fluctuations; G40.909 Epilepsy, unspecified, not intractable, without status epilepticus; E78.5 Hyperlipidemia, unspecified; G62.9 Polyneuropathy, unspecified; Z79.899 Other long term (current) drug therapy; Z20.822 Contact with and (suspected) exposure to COVID-19; F41.9 Anxiety disorder, unspecified; J44.9 Chronic obstructive pulmonary disease, unspecified; K21.9 Gastro-esophageal reflux disease without esophagitis; S90.822A Blister (nonthermal), left foot, initial encounter; S90.821A Blister (nonthermal), right foot, initial encounter; X58.XXXA Exposure to other specified factors, initial encounter; Y93.9 Activity, unspecified; Y92.129 Unspecified place in nursing home as the place of occurrence of the external cause; K02.9 Dental caries, unspecified; Z73.6 Limitation of activities due to disability; M20.12 Hallux valgus (acquired), left foot; M20.11 Hallux valgus (acquired), right foot; S93.104A Unspecified dislocation of right toe(s), initial encounter; F60.3 Borderline personality disorder; R73.9 Hyperglycemia, unspecified; B96.20 Unspecified Escherichia coli [E. coli] as the cause of diseases classified elsewhere; Z87.891 Personal history of nicotine dependence; Z91.199 Patient's noncompliance with other medical treatment and regimen due to unspecified reason
CPT/HCPCS: 36415; 71045-TC; 80048-TC; 80061-TC; 80076-TC; 81001; 85025-TC; 87040-TC; 87081-TC; 87086-TC; 93307-TC; G0480; J2426; J3490; Q0163